=== PATIENT | male | born 1970 | race Caucasian/White ===

== ENCOUNTER → 2020-01-19 08:55 | Outpatient (BNVA) | payer MEDICAID, SELFPAY | PROVIDERS: Family Provider Family Medicine; PCP Family Medicine; Visit Provider Family Medicine | DX: I10 Essential (primary) hypertension (principal); E11.40 Type 2 diabetes mellitus with diabetic neuropathy, unspecified; E78.2 Mixed hyperlipidemia; M54.12 Radiculopathy, cervical region; G47.33 Obstructive sleep apnea (adult) (pediatric); E11.628 Type 2 diabetes mellitus with other skin complications; Z79.4 Long term (current) use of insulin; R79.89 Other specified abnormal findings of blood chemistry | CPT/HCPCS: 80053; 80061; 83036; 83721 ==

== ENCOUNTER 2020-02-01 06:00 | Outpatient (RCR) | payer MEDICAID, SELFPAY | END 2020-02-09 23:59 | disposition home or self-care (01) | LOC: MPT 06:00 | PROVIDERS: Family Provider Family Medicine; PCP Family Medicine; Referring Provider Family Medicine; Visit Provider Family Medicine | DX: G89.29 Other chronic pain (principal); M54.12 Radiculopathy, cervical region | CPT/HCPCS: 97110; 97140; 97161 ==

== ENCOUNTER 2020-02-08 10:21 | Outpatient (CLI) | payer MEDICAID, SELFPAY ==
--- NOTE | 2020-02-08 11:00 | MR_ITS ---
WS: [id number] MRI CERVICAL SPINE HISTORY: Left arm pain, weakness, muscle atrophy COMPARISON: None. Study was terminated early due to patient discomfort. Normal cervical alignment with no compression fracture or significant disc space narrowing. Mild hype rtrophic bone formation. No acute fractures are evident. Signal within the cervical cord is normal. Visualized posterior fossa is unremarkable. Craniocervical junction, C1 and C2 relationship, odontoid process and soft tissues are normal. C2-C3: Normal. C3-C4: Central broad based disc protrusion and osteophytosis. Effacement of ventral CSF. Moderate new tral and bilateral foraminal stenosis. C4-C5: Mild annular disc bulging and osteophytosis. Thecal sac is being significantly narrowed. There is mild central and LEFT foraminal stenosis. C5-C6: Diffuse annular disc bulging and osteophytic ridging. At least mild central stenosis with near complete effacement of CSF. C6-C7: Mild central stenosis. Indeterminate but suspicious for a shallow RIGHT paracentral disc prot rusion. C7-T1: Poorly visualized. Mild central stenosis. RIGHT paracentral disc protrusion with contact on th e RIGHT lateral thecal sac and cord. Paraspinal soft tissue are normal. MR/MR cervical spin wo con* [id number] IMPRESSION: 1. Examination is limited by patient's body habitus and early termination. Pat ient was unable to tolerate examination. 2. Congenitally narrow thecal sac beginning at the C2-3 through C7-T1. 3. Moderate central and bilateral foraminal stenosis at C3-4. 4. Mild central LEFT foraminal stenosis at C4-5. 5. Mild central stenosis at C5-6 and C6-7 and C7-T1. 6. Small RIGHT paracentral disc protrusion at C7-T1 contacting the RIGHT later al thecal sac and cord.
== END 2020-02-08 10:22 | disposition home or self-care (01) ==
LOC: RADSHAW 10:24
PROVIDERS: Family Provider Family Medicine; PCP Family Medicine; Visit Provider Family Medicine
DX: M79.602 Pain in left arm (principal); R53.1 Weakness; M62.50 Muscle wasting and atrophy, not elsewhere classified, unspecified site; M48.02 Spinal stenosis, cervical region; M51.24 Other intervertebral disc displacement, thoracic region
CPT/HCPCS: 72141

== ENCOUNTER → 2020-02-09 09:48 | Outpatient (BNVA) | payer MEDICAID, SELFPAY | PROVIDERS: Family Provider Family Medicine; PCP Family Medicine; Visit Provider Nurse Practitioner Family | DX: N39.0 Urinary tract infection, site not specified (principal); R39.9 Unspecified symptoms and signs involving the genitourinary system | CPT/HCPCS: 80053; 81000 ==

== ENCOUNTER 2020-02-10 06:00 | Outpatient (RCR) | payer MEDICAID, SELFPAY | END 2020-03-10 23:59 | disposition home or self-care (01) | LOC: MPT 06:00 | PROVIDERS: Family Provider Family Medicine; PCP Family Medicine; Referring Provider Family Medicine; Visit Provider Family Medicine | DX: G89.29 Other chronic pain (principal); M54.12 Radiculopathy, cervical region | CPT/HCPCS: 97110; 97140 ==

== ENCOUNTER 2020-02-25 10:02 | Outpatient (CLI) | payer MEDICAID, SELFPAY ==
--- NOTE | 2020-02-25 10:13 | XR_ITS ---
WS: [id number] CERVICAL SPINE FLEXION EXTENSION TECHNIQUE: 3 views of the cervical spine: lateral neutral, flexion and extension views. CLINICAL INFORMATION: Neck pain COMPARISON: None. FINDINGS: Normal alignment on the neutral view. No instability on flexion-extension. C6 and C7 not well visualized on lateral view. Posterior elements are normal. No other significant findings. XR/XR cervical spine fl/ex [id number] IMPRESSION: No instability on flexion-extension
== END 2020-02-25 10:03 | disposition home or self-care (01) ==
LOC: RADWPI 10:05
PROVIDERS: Family Provider Family Medicine; PCP Family Medicine; Visit Provider Licensed Practical Nurse
DX: M54.2 Cervicalgia (principal)
CPT/HCPCS: 72040

== ENCOUNTER 2020-03-02 12:21 | Outpatient (CLI) | payer MEDICAID, SELFPAY ==
--- NOTE | 2020-03-02 12:27 | XR_ITS ---
WS: [id number] CHEST 2 VIEWS HISTORY: right flank and ruq pain, 3 weeks COMPARISON: 05/31/2019 Lungs: Clear with no abnormality. No pleural effusion or pneumothorax. Cardiac size: Normal. Mediastinum/Aorta: Normal mediastinum. Bones: Normal. XR/XR chest 2V* [id number] IMPRESSION: Normal chest.
--- NOTE | 2020-03-02 12:27 | XR_ITS ---
WS: [id number] ABDOMEN 2 VIEW(S) HISTORY: abdominal pain, right flank and ruq pain COMPARISON: None available. Moderate fecal retention throughout the colon. No obstruction. No air-fluid levels or free air. Prior cholecystectomy. No suspicious calcifications or masses. Bridging osteophytes along the RIGHT lateral thoracic and lumbar spine. Bilateral hip joint osteoarth ritis. XR/XR abdomen min 2V [id number] IMPRESSION: Moderate constipation. No obstruction or free air. Prior cholecystectomy.
== END 2020-03-02 12:22 | disposition home or self-care (01) ==
PROVIDERS: Family Provider Family Medicine; PCP Family Medicine; Visit Provider Emergency Medicine
DX: R10.11 Right upper quadrant pain (principal); R10.9 Unspecified abdominal pain; Z90.49 Acquired absence of other specified parts of digestive tract; K59.00 Constipation, unspecified
CPT/HCPCS: 71046; 74019; 80053; 81000; 83690; 85025

== ENCOUNTER 2020-03-11 06:00 | Outpatient (RCR) | payer MEDICAID, SELFPAY | END 2020-04-10 23:59 | disposition home or self-care (01) | LOC: MPT 06:00 | PROVIDERS: Family Provider Family Medicine; PCP Family Medicine; Referring Provider Family Medicine; Visit Provider Family Medicine | DX: G89.29 Other chronic pain (principal); M54.12 Radiculopathy, cervical region | CPT/HCPCS: 97110; 97140 ==

== ENCOUNTER 2020-03-22 17:41 | Emergency (ER) | payer MEDICAID, SELFPAY ==
--- NOTE | 2020-03-22 18:02 | XR_ITS ---
WS: [id number] ABDOMEN 1 VIEW(S) HISTORY: constipation COMPARISON: None available. Normal bowel gas pattern. No suspicious calcifications or masses. Stable calcific density in the RIGHT pelvis. No bone abnormality. Prior cholecystectomy. XR/XR KUB [id number] IMPRESSION: Normal abdomen.
[2020-03-22 18:04] VITALS: BP 144/78; PULSE 78; RESP 16; O2SAT 97; BMI 40.6
--- NOTE | 2020-03-22 19:32 | ED_ITS ---
HPI - Abdominal Pain General: Chief Complaint: Abdominal Pain Stated Complaint: CONSTIPATION Time Seen by Provider: 03/22/20 19:18 Source: patient Mode of arrival: ambulatory Limitations: no limitations History of Present Illness: HPI narrative: 49-year-old male states he has been constipated over the last week and has had no bowel movements. He states that he has been on lactulose along with GoLYTELY with no help. He states he had increased pain was concerned that he could have a blockage. He denies any fever. He has had one episode of vomiting today. MD elicited complaint: abdominal pain Pertinent past history: constipation Onset (ago): week(s) Pain Consistency: constant Location: Diffuse Severity: moderate Quality: cramping Radiation: none Migration to: no migration Exacerbating factors: nothing Relieving factors: nothing Associated Symptoms: Reports constipation; Denies chills, dysuria and fever(s) Review of Systems Const: Denies: fever, chills, body aches or change in appetite Eyes: Denies: blurry vision or eye discomfort ENMT: Denies: throat pain or dental pain Card: Denies: chest pain Resp: Denies: shortness of breath GI: Reports: abdominal pain and constipation : Denies: painful urination Musc: Denies: neck pain or back pain Skin/Breast: Denies: rash Neuro: Denies: headache Psych: Denies: depression Miguelito/Lymph: Denies: easy bruising All/Imm: Denies: hives PFSH ED PFSH: Medical History 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 Constipation Diabetic neuropathy, painful Erectile dysfunction Hypertension Low testosterone in male Mixed hyperlipidemia Obstructive sleep apnea syndrome Paroxysmal atrial fibrillation Stenosis of cervical spine with myelopathy Type 2 diabetes mellitus Surgical History H/O cataract extraction History of cholecystectomy S/P cholecystectomy Family History Mother Dementia Brother Dementia Other Heart disease Social History Smoking and tobacco status: never smoked Alcohol intake: never Desire information about substance/drug rehabilitation?: No Household members: children Marital status: Current occupational status: unemployed History of recent travel: No Current gender identity: Male Physical Exam Const: COMMON NORMALS: no apparent distress, oriented x3 and healthy appearing HENMT: COMMON NORMALS: normocephalic and head/scalp atraumatic HEAD & SCALP: normocephalic and atraumatic Eye: COMMON NORMALS: PERRL and EOMs intact bilaterally PUPIL: Yes PERRL Neck/C-Spine: COMMON NORMALS: full ROM and supple Chest: COMMONS NORMALS: inspection of chest normal and palpation of chest normal Resp: COMMON NORMALS: normal respiratory effort, no retractions, no use of accessory muscles and clear to auscultation bilaterally AUSCULTATION: clear to auscultation bilaterally Cardio: COMMON NORMALS: regular rate, regular rhythm and no murmurs RATE: regular rate RHYTHM: regular rhythm GI: COMMON NORMALS: normal to inspection, nondistended, normoactive bowel sounds, soft to palpation, non-tender and no masses PALPATION: Yes soft Extremity: COMMON NORMALS: normal to inspection and full ROM Neuro: COMMON NORMALS: oriented x3, moves all extremities and no focal motor deficits Psych: COMMON NORMALS: mental status grossly normal, thought process normal and cooperative THOUGHT PROCESS: normal thought process Skin: COMMON NORMALS: no rashes or lesions noted and no wounds GENERAL SKIN EXAM: no rashes or lesions noted Course Vital Signs: Vital signs: Vital Signs Temperature 97.8 F 03/22/20 19:51 Pulse Rate 76 03/22/20 20:56 Respiratory Rate 16 03/22/20 20:56 Blood Pressure 148/79 03/22/20 20:56 Pulse Oximetry 96 03/22/20 20:56 MDM - Abdominal Pain MDM Narrative: Medical decision making narrative: Patient presents here with diffuse abdominal pain that is been going on for a week to 2 weeks. He has no signs of impaction or obstruction. CT here is otherwise negative lab work is negative as well. Patient is stable for discharge this to follow-up with his primary care doctor in 3 to 5 days. Patient is to return if worsening. Lab Data: Labs: Lab Results 03/22/20 03/22/20 Range/Units 19:34 19:34 WBC 9.6 (4.0-10.0) 10^3/ uL RBC 5.78 H (4.1-5.3) 10^6/u L Hgb 15.7 (11.7-16.6) g/dL Hct 49.7 (42.0-52.0) % MCV 86.0 (80-94) fL MCH 27.2 L (28.0-34.0) pg MCHC 31.6 (30.0-36.0) g/dL RDW 14.2 (12.1-15.1) % Plt Count 218 (130-400) 10^3/c mm MPV 10.0 (7.4-10.4) fL Neut % (Auto) 61.4 % Lymph % (Auto) 28.5 % Shackelford % (Auto) 6.9 % Eos % (Auto) 2.1 % Baso % (Auto) 0.8 % Neut # (Auto) 5.9 (1.8-7.7) 10^3/u L Lymph # (Auto) 2.7 (0.8-4.8) 10^3/u L Shackelford # (Auto) 0.7 (0.2-0.9) 10^3/u L Eos # (Auto) 0.2 (0.0-0.8) 10^3/u L Baso # (Auto) 0.1 (0.0-0.1) 10^3/u L Nucleated RBC % (a uto) 0 % Nucleated RBCs # 0.0 /100WBC Sodium 136 (136-145) mmol/L Potassium 4.9 (3.5-5.1) mmol/L Chloride 95 L (98-107) mmol/L Carbon Dioxide 30 H (22-29) mmol/L Anion Gap 15.9 (5-19) BUN 15 (6-20) mg/dL Creatinine 0.8 (0.7-1.2) mg/dL GFR Calculation 102.3 (90-130) mL/min Glucose 349 H (65-115) mg/dL Calculated Osmolal ity 292 (285-295) mOsm/k g Calcium 9.0 (8.5-10.5) mg/dL Total Bilirubin 0.4 (0.15-1.2) mg/dL AST 17 (0-40) U/L ALT 17 (0-41) U/L Alkaline Phosphata se 97 (40-130) IU/L Total Protein 6.9 (6.6-8.7) g/dL Albumin 4.3 (3.5-5.2) g/dL Globulin 2.6 (1.3-4.6) g/dL Lipase 23 (13-60) U/L Imaging Data ^: CT Abd/Pel: Radiologist's impression: [facility] [address] [place] [address] CT Scan Report Signed Patient: Allen Prince Unit #: [id number] : 1970 Age/Sex: 49 / M ADM Date: 03/22/20 Loc: ER Room/Bed: Attending Dr: Ordering Provider/Ordering MD: Gurinder Santo MD Date of Service: 03/22/20 Procedure(s): CT abdomen pelvis w con* [id number] Accession Number(s): [id number] Report Number: [id number] PROCEDURE INFORMATION: Exam: CT Abdomen And Pelvis With Contrast Exam date and time: 03/22/2020 7:39 PM Age: 49 years old Clinical indication: Constipation; Prior surgery; Surgery type: Gb; Additional info: Abd pain TECHNIQUE: Imaging protocol: Computed tomography of the abdomen and pelvis with intravenous contrast. Radiation optimization: All CT scans at this facility use at least one of these dose optimization techniques: automated exposure control; mA and/or kV adjustment per patient size (includes targeted exams where dose is matched to clinical indication); or iterative reconstruction. Contrast material: OMNI 300; Contrast volume: 95 ml; Contrast route: IV; COMPARISON: CR XR KUB [id number] 03/22/2020 6:33 PM RADIATION DOSE METRICS: Total DLP: 2254.45 mGy-cm FINDINGS: Lungs: There are calcified granulomas at the right lung base. Liver: There is no focal abnormality within the liver. Gallbladder and bile ducts: There has been a cholecystectomy. Pancreas: The pancreas is normal. Spleen: The spleen is normal. Adrenals: The adrenal glands are normal. Kidneys and ureters: The kidneys are normal. There is no evidence of renal or ureteral calcifications. There is no evidence of hydronephrosis. Stomach and bowel: There is no evidence of colitis/diverticulitis. Appendix: A normal appendix is identified. Intraperitoneal space: Unremarkable. No free air. No significant fluid collection. Vasculature: Unremarkable. No abdominal aortic aneurysm. Lymph nodes: Unremarkable. No enlarged lymph nodes. Bladder: Urinary bladder is moderately distended with a volume of approximately 800 cc. Reproductive: Unremarkable as visualized. Bones/joints: The lumbar spine demonstrates mild degenerative changes at multiple levels. Soft tissues: Unremarkable. CT/CT abdomen pelvis w con* [id number] IMPRESSION: 1. Distended urinary bladder. 2. No acute finding Discharge Plan Discharge Patient Disposition: Home, Self-Care Clinical Impression: Abdominal pain Qualifiers: Abdominal location: generalized Qualified Code(s): R10.84 - Generalized abdominal pain Condition: Stable Prescriptions: No Action aspirin 81 mg tablet,delayed release (DR/EC) 81 mg PO QDAY RF: 0 omega-3 fatty acids [Fish Oil Concentrate] 1,000 mg capsule 1,000 mg PO BID RF: 0 nitroglycerin 0.4 mg tablet, sublingual 0.4 mg SUBLINGUAL Q5M PRNRF: 0 baclofen 20 mg tablet 20 mg PO QID RF: 0 spironolactone 50 mg tablet 50 mg PO DAILY 30 Days Qty: 30 RF: 1 omeprazole 20 mg capsule,delayed release(DR/EC) 20 mg PO BID 30 Days Qty: 60 RF: 0 docusate sodium 100 mg capsule 100 mg PO BID 30 Days Qty: 60 RF: 2 Invokana 300 mg tablet 300 mg PO QDAY 30 Days Qty: 30 RF: 3 Lantus Solostar U-100 Insulin 100 unit/mL (3 mL) insulin pen 80 unit SUBCUT BID 30 Days Qty: 48 RF: 3 atorvastatin 40 mg tablet 40 mg PO QDAY 30 Days Qty: 30 RF: 11 metoprolol succinate 25 mg tablet extended release 24 hr 25 mg PO QDAY 30 Days Qty: 30 RF: 3 miscellaneous medical supply Misc See Rx Instructions miscellaneous .COMPLEX Qty: 1 RF: 0 peg 3350-electrolytes [Golytely] 236-22.74-6.74 -5.86 gram recon soln 240 ml PO Q10M Qty: 4000 RF: 0 ezetimibe [Zetia] 10 mg tablet 10 mg PO QDAY 30 Days Qty: 30 RF: 5 lisinopril 10 mg tablet 10 mg PO QDAY 30 Days Qty: 30 RF: 3 gabapentin 300 mg capsule 300 - 600 mg PO TID 30 Days Qty: 120 RF: 3 apixaban [Eliquis] 5 mg tablet See Rx Instructions .ROUTE .COMPLEX Qty: 60 RF: 2 flecainide 50 mg tablet 50 mg PO Q8H Qty: 60 RF: 4 lactulose 10 gram/15 mL (15 mL) solution 10 gm PO QID PRN (Reason: constipation) 7 Days Qty: 600 RF: 0 sitagliptin-metformin [Janumet] 50-1,000 mg tablet See Rx Instructions .ROUTE .COMPLEX Qty: 60 RF: 2 Discharge Orders: Discharge Order (Routine); Ordered 03/22/20 Ordered By: Gurinder Santo Referrals: Alana Davila MD [Primary Care Provider] - 1-3 days Discharge Diet: Advance as tolerated Discharge Activity: Resume usual activity Patient Instructions: Abdominal Pain (ED) Discharge Date/Time: 03/22/20 20:59 Coding Level of Care Code ED Finish Repairer for Srinig Fwd Exam Comprehensive
--- NOTE | 2020-03-22 19:42 | PC.NURSE ---
patient states he has been having shooting sharp pains in his right side of his abdomen that started three weeks ago. Patient states he had xrays done at [facility] 3 weeks ago and that they showed he was impacted. patient states he has been taking go lightly but it has been making him sick to his stomach and vomiting. patient states he has had an headache since starting the treatment.
[2020-03-22 19:44] LABS: Basophils # 0.1 10^3/uL (0.0-0.1); Basophils % 0.8 %; Eosinophils # 0.2 10^3/uL (0.0-0.8); Eosinophils % 2.1 %; Hematocrit 49.7 % (42.0-52.0); Hemoglobin 15.7 g/dL (11.7-16.6); Lymphocytes # 2.7 10^3/uL (0.8-4.8); Lymphocytes % 28.5 %; Mean Corpuscular HGB Conc 31.6 g/dL (30.0-36.0); Mean Corpuscular Hemoglobin 27.2 pg (28.0-34.0); Monocytes # 0.7 10^3/uL (0.2-0.9); Monocytes % 6.9 %; Neutrophils # 5.9 10^3/uL (1.8-7.7); Neutrophils % 61.4 %; Nucleated Red Blood Cells % 0 %; Platelet Count 218 10^3/cmm (130-400); Red Blood Count 5.78 10^6/uL (4.1-5.3); Red Cell Distribution Width 14.2 % (12.1-15.1); White Blood Count 9.6 10^3/uL (4.0-10.0)
--- NOTE | 2020-03-22 19:48 | PC.NURSE ---
patient states that the last time he had a bowel movement was this morning and it looked like hard brown pellets.
[2020-03-22] MEDS: lactulose oral liq 20 gm/30 mL UDC 30 GM PO (19:49)
[2020-03-22 19:51] VITALS: BP 139/83; PULSE 73; RESP 16; TEMP 36.6; O2SAT 96
[2020-03-22 19:56] LABS: Alanine Aminotransferase 17 U/L (0-41); Albumin Level 4.3 g/dL (3.5-5.2); Alkaline Phosphatase 97 IU/L (40-130); Anion Gap 15.9 (5-19); Blood Urea Nitrogen 15 mg/dL (6-20); Carbon Dioxide 30 mmol/L (22-29); Chloride 95 mmol/L (98-107); Globulin 2.6 g/dL (1.3-4.6); Glomerular Filtration Rate 102.3 mL/min (90-130); Glucose 349 mg/dL (65-115); Lipase 23 U/L (13-60); Osmolality Calculated 292 mOsm/kg (285-295); Potassium 4.9 mmol/L (3.5-5.1); Sodium 136 mmol/L (136-145); Total Bilirubin 0.4 mg/dL (0.15-1.2); Total Protein 6.9 g/dL (6.6-8.7)
[2020-03-22] MEDS: iohexol 300 mg/mL 100 mL Btl IV (20:20)
[2020-03-22 20:24] LABS: Aspartate Amino Transferase 17 U/L (0-40)
--- NOTE | 2020-03-22 20:25 | PC.NURSE ---
patient back from CT
[2020-03-22 20:30] VITALS: BP 120/67; O2SAT 96
[2020-03-22 20:56] VITALS: BP 148/79; PULSE 76; RESP 16; O2SAT 96
== END 2020-03-22 20:59 | disposition home or self-care (01) ==
PROVIDERS: Emergency Provider Emergency Medicine; PCP Family Medicine
DX: R10.84 Generalized abdominal pain (principal); Z79.82 Long term (current) use of aspirin; Z79.4 Long term (current) use of insulin; E11.40 Type 2 diabetes mellitus with diabetic neuropathy, unspecified; I10 Essential (primary) hypertension; E78.2 Mixed hyperlipidemia; I48.0 Paroxysmal atrial fibrillation
CPT/HCPCS: 12345; 74018; 74177; 80053; 83690; 85025; 99281; 99283; Q9967

== ENCOUNTER 2020-04-08 09:33 | Outpatient (CLI) | payer MEDICAID, SELFPAY ==
--- NOTE | 2020-04-08 10:00 | IR_ITS ---
WS: [id number] MYELOGRAM CERVICAL SPINE Fluoroscopic guided cervical myelogram CLINICAL INFORMATION: cervical pain COMPARISON: None. TECHNIQUE: The procedure, including risks, benefits, and complications, were discussed with the patie nt who agreed to proceed. A timeout was performed to confirm correct patient, procedure, and site. Using sterile technique, the patient was prepped and draped in the usual sterile fashion. After admin istration of local anesthesia using 1% preservative-free lidocaine and using fluoroscopic guidance, a 22-gauge spinal needle was advanced into the subarachnoid space at the L2-3 level. Subsequently 13 c c of Omnipaque 300 was administered into the thecal sac. The needle was removed and hemostasis was ac hieved. Subsequently the table was tilted down and contrast flowed freely into the cervical spine. Sp ot fluoroscopic images were obtained. FLUOROSCOPIC TIME: 2.1 minutes. Spot fluoroscopic images demonstrate mild cervical curve convex left. Moderate facet arthropathy thro ughout the thoracic spine. Normal C1-articulation. Straightening of the mid and upper cervical lordos is. No instability on flexion-extension. C6 and C7 and difficult to visualize on the flexion and exte nsion due to shoulder overlap. Please see CT myelogram report for additional detail. IR/IR myelogram sp cervical [id number] IMPRESSION: 1. Uncomplicated cervical myelogram. 2. Moderate spondylitic changes with facet arthropathy throughout the cervical spine. 3. Normal alignment on the neutral view with mild cervical curve and straighte martha of the normal cervical lordosis. 4. No instability on flexion-extension. C6 and C7 not well visualized on the f lexion and extension views due to shoulder overlap.
[2020-04-08] MEDS: iohexol 300 mg/mL 50 mL Btl INTRATHECA (11:11)
--- NOTE | 2020-04-08 11:30 | CT_ITS ---
WS: [id number] CT CERVICAL MYELOGRAM TECHNIQUE: CT of the cervical spine coronal and sagittal reformatted images post intrathecal administ ration of contrast. CLINICAL INFORMATION: cervical pain COMPARISON: MRI February 08, 2020 DLP: 2497.[address] scans at [facility] use at least one of these dose optimization techniques: automat ed exposure control; mA and/or kV adjustment per patient size (includes targeted exams where dose is matched to clinical indication); or iterative reconstruction. FINDINGS: Mild cervical curve convex right. Mild spondylitic changes cervical spine. Mild congenital spinal can al stenosis as seen on the cervical spine MRI contributes to central canal narrowing. C2-C3: Mild osteophytic ridging. Mild right and no significant left foraminal narrowing. Mild central canal stenosis. C3-C4: Mild disc osteophyte complex with endplate ridging. Tiny central disc osteophyte protrusion. M ild central canal stenosis with mild bilateral foraminal narrowing. Mild facet arthropathy. C4-C5: Mild disc osteophyte complex with endplate ridging. Moderate facet arthropathy. Moderate left and no significant right foraminal narrowing. C5-C6: Small central disc osteophyte complex with mild central canal stenosis. Moderate facet arthrop athy. Mild left and no significant right foraminal narrowing. C6-C7: Disc osteophyte complex with endplate ridging. Small central disc osteophyte protrusion. Mild central canal stenosis. Moderate left and no significant right foraminal narrowing. C7-T1: No significant disc bulging. Mild osteophytic ridging. Spinal canal and foramen are patent. Visualized posterior fossa structures: Normal. CT/CT cervical spine w con [id number] IMPRESSION: 1. Mild congenital central canal stenosis due to short pedicles contributes to mild central canal narrowing. No high-grade central canal stenosis. 2. Small central disc osteophyte protrusions C3-C4 C5-C6 and C6-C7 with mild c entral canal stenosis. 3. Mild to moderate bony foraminal narrowing worse at left C4-C5 and left C6-C 7 due to osteophytic ridging and facet arthropathy. 4. Mild cervical curve convex right. 5. Mild to moderate facet arthropathy worse at C5-C6
== END 2020-04-08 09:34 | disposition home or self-care (01) ==
LOC: RADWPI 09:34
PROVIDERS: PCP Family Medicine; Visit Provider Specialist
DX: M54.2 Cervicalgia (principal); M48.02 Spinal stenosis, cervical region; M25.78 Osteophyte, vertebrae; M47.812 Spondylosis without myelopathy or radiculopathy, cervical region
CPT/HCPCS: 62302; 72040; 72126; J2001

== ENCOUNTER 2020-04-21 09:13 | Day surgery (SDC) | payer MEDICAID, SELFPAY ==
[2020-04-19 14:00] VITALS: BMI 40.4
[2020-04-21 09:27] VITALS: BP 132/66; PULSE 66; RESP 18; TEMP 36.6; O2SAT 99
[2020-04-21] MEDS: sodium chloride 0.9% 1,000 ML 30 ML IV (09:39)
[2020-04-21 09:43] LABS: Glucose Point of Care 110 mg/dL (70-110)
--- NOTE | 2020-04-21 09:55 | ANES.PREANE2 ---
Pre-Anesthetic Assessment Pre-Anesthetic Assessment: Height/Weight: Height 1.98 m Weight 158.757 kg Temp Pulse Resp BP Pulse Ox 97.9 F 66 18 132/66 99 04/21/20 09:27 04/21/20 09:27 04/21/20 09:27 04/21/20 09:27 04/21/20 09:27 Preop Diagnosis: abdominal pain Proposed Procedure: Operation Date: 04/21/20 10:30 Proposed Procedures p EGD(Not Applicable) - Jim Capps MD s Colonoscopy(Not Applicable) - Jim Capps MD Familial anesthetic complications: none Last look eliquis saturday, metoprolol last night Last intake: Intake Last Liquid Date 04/20/20 Last Liquid Time 23:00 Last Solid Date 04/19/20 Last Solid Time 23:59 Social: Social History: No alcohol and No tobacco Exam: Pre-Anes Outpt Exam: alert, oriented x 3, clear to auscultation bilaterally and regular rate & rhythm Airway: Cervical ROM: WNL MP: 2 Dentition: Chipped and Loose Additional comments: extremley poor dentition Pulmonary: Pulmonary: None reported CV/HEM: CV/HEM: Afib and HTN : : None reported Hepatic: Hepatic: None reported GI: GI: None reported Metabolic: Metabolic: DM and Morbid obesity Musc/skel: Musc/skel: None reported Neuropsych: Neuropsych: None reported Anesthetic Plan: ASA status: 3 Anesthesia: MAC Risk of > 500 ml blood loss (7ml/kg in children): No Meds/Allergies Current Medications: Current Medications Generic Name Dose Route Start Last Admin Trade Name Freq PRN Reason Stop Dose Admin Sodium Chloride 1,000 mls @ 30 ml s/hr 04/21/20 09:30 04/21/20 09:39 Sodium Chloride 0.9% IV 04/22/20 09:29 30 mls/hr .Q24H ALLYN Administration PFSH Anesthesia PFSH: Medical History 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 Constipation Diabetic neuropathy, painful Erectile dysfunction Hypertension Low testosterone in male Mixed hyperlipidemia Obstructive sleep apnea syndrome Paroxysmal atrial fibrillation Stenosis of cervical spine with myelopathy Type 2 diabetes mellitus Surgical History H/O cataract extraction S/P cholecystectomy Family History Mother Dementia Brother Dementia Other Heart disease Denies family history of Anesthesia complication Bleeding disorder Social History (Updated 04/12/20 @ 07:57 by Sonya Magana LPN) Smoking and tobacco status: never smoked Alcohol intake: never Household members: children Marital status: Current occupational status: employed Current occupation: [employer] History of recent travel: No Current gender identity: Male Data Anesthesia Other Labs: Laboratory Results - last 48 hr 04/21/20 09:40 POC Glucose 110 Cardiac Studies: No Data to Display
--- NOTE | 2020-04-21 10:58 | W.PM.OPSUD ---
Surgery/Procedure H&P Update DATE OF PROCEDURE: April 21, 2020 DATE H&P PERFORMED: 04/01/20 H&P UPDATE INFORMATION: I have reviewed H&P completed within last 30 days, I have examined patient prior to procedure and No changes to prior documentation PREOP DIAGNOSIS: abdominal pain PLANNED PROCEDURE: Operation Date: 04/21/20 10:30 Proposed Procedures p EGD(Not Applicable) - Jim Capps MD s Colonoscopy(Not Applicable) - Jim Capps MD
[2020-04-21 11:17] VITALS: BP 98/54; PULSE 70; RESP 16; TEMP 37.1; O2SAT 99
--- NOTE | 2020-04-21 11:17 | ANE.PACU2 ---
Inpatient post-anesthesia follow up: Airway intact: Yes Vital signs: Temperature 97.9 F Pulse Rate 66 Respiratory Rate 18 Blood Pressure 132/66 Pulse Oximetry 99 Oxygen Delivery Me thod Room Air Oxygen Flow Rate Fraction of Inspir ed Oxygen Hydration adequate: Yes Nausea and vomiting: No Pain level: 1 Mental status: Baseline
[2020-04-21 11:34] VITALS: BP 109/59; PULSE 72; RESP 18; TEMP 37.1; O2SAT 100
== END 2020-04-21 11:55 | disposition home or self-care (01) ==
PROVIDERS: PCP Family Medicine; Visit Provider Surgery
PROC: 0DJ08ZZ Inspection of Upper Intestinal Tract, Via Natural or Artificial Opening Endoscopic (ICD-10-PCS; CPT 43235; principal; 2020-04-21 10:30)
PROC: 0DJD8ZZ Inspection of Lower Intestinal Tract, Via Natural or Artificial Opening Endoscopic (ICD-10-PCS; CPT 45378; 2020-04-21 10:30)
DX: R10.9 Unspecified abdominal pain (principal); R10.13 Epigastric pain; K29.70 Gastritis, unspecified, without bleeding; K29.80 Duodenitis without bleeding; I48.91 Unspecified atrial fibrillation; I10 Essential (primary) hypertension; E11.9 Type 2 diabetes mellitus without complications; E66.01 Morbid (severe) obesity due to excess calories; Z68.41 Body mass index [BMI] 40.0-44.9, adult; E78.2 Mixed hyperlipidemia; G47.33 Obstructive sleep apnea (adult) (pediatric); I48.0 Paroxysmal atrial fibrillation
CPT/HCPCS: 12345; 36416; 43239; 45378; 82962; 88305; J2704; J3010; J7030

== ENCOUNTER 2020-04-22 10:00 | Outpatient (CLI) | payer MEDICAID, SELFPAY ==
--- NOTE | 2020-04-22 10:10 | FL_ITS ---
WS: [id number] BARIUM ENEMA SINGLE CONTRAST. HISTORY: CONSTIPATION COMPARISON: None available. FLUOROSCOPY TIME: 2.3 minutes. Single contrast evaluation of the colon is performed. There is still a moderate amount of fecal reten tion throughout the colon. Tortuous colon with overlapping loops in the sigmoid. No strictures or soft tissue masses. There is g ood distention of the hepatic and splenic flexures. There is partial obscuration by fecal material of the RIGHT colon. The appendix does fill with contrast. There is also small amount of reflux into the distal small bowel. There is a persistent mild stricture in the ascending colon during the examinati on. This was not as apparent on the postevacuation and follow-up radiographs. FL/FL barium enema w air* [id number] IMPRESSION: 1. Tortuous overlapping loops of colon. 2. Study is limited by fecal retention in the RIGHT colon. 3. Focal mild stricture in the ascending colon persisted throughout the fluoro scopic examination but was not evident on the delayed imaging. May have been an area of spasm but early neoplastic stricture is not excluded. Recommend follow -up colonoscopy.
== END 2020-04-22 10:01 | disposition home or self-care (01) ==
PROVIDERS: PCP Family Medicine; Visit Provider Surgery
DX: K59.00 Constipation, unspecified (principal)
CPT/HCPCS: 74280

== ENCOUNTER → 2020-04-25 09:16 | Outpatient (BNVA) | payer MEDICAID, SELFPAY | PROVIDERS: PCP Family Medicine; Visit Provider Family Medicine | DX: I10 Essential (primary) hypertension (principal); K59.00 Constipation, unspecified; K56.7 Ileus, unspecified; E11.628 Type 2 diabetes mellitus with other skin complications; Z79.4 Long term (current) use of insulin | CPT/HCPCS: 80053; 83036 ==

== ENCOUNTER → 2020-04-26 10:50 | Outpatient (BNVA) | payer MEDICAID, SELFPAY | PROVIDERS: PCP Family Medicine; Referring Provider Specialist; Visit Provider Anesthesiology Pain Medicine | DX: M25.512 Pain in left shoulder (principal); M54.2 Cervicalgia | CPT/HCPCS: 99204; 99205 ==

== ENCOUNTER 2020-05-11 | Outpatient (CLI) | payer MEDICAID, SELFPAY | END 2020-05-11 23:00 | disposition home or self-care (01) | LOC: SLEEP 07-11 12:36 | PROVIDERS: PCP Family Medicine; Visit Provider Family Medicine | DX: M50.020 Cervical disc disorder with myelopathy, mid-cervical region, unspecified level (principal); G47.33 Obstructive sleep apnea (adult) (pediatric) | CPT/HCPCS: 62321; J1100 ==

== ENCOUNTER → 2020-05-11 13:01 | Outpatient (BNVA) | payer MEDICAID, SELFPAY | PROVIDERS: PCP Family Medicine; Visit Provider Anesthesiology Pain Medicine | DX: M50.020 Cervical disc disorder with myelopathy, mid-cervical region, unspecified level (principal) | CPT/HCPCS: 62321 ==

== ENCOUNTER 2020-05-25 20:00 | Outpatient (CLI) | payer MEDICAID, SELFPAY | END 2020-05-25 20:01 | disposition home or self-care (01) | LOC: SLEEP 05-26 09:50 | PROVIDERS: PCP Family Medicine; Visit Provider Family Medicine | DX: G47.33 Obstructive sleep apnea (adult) (pediatric) (principal) | CPT/HCPCS: 95811 ==

== ENCOUNTER → 2020-05-30 13:54 | Outpatient (BNVA) | payer MEDICAID, SELFPAY | PROVIDERS: PCP Family Medicine; Visit Provider Anesthesiology Pain Medicine | DX: M50.020 Cervical disc disorder with myelopathy, mid-cervical region, unspecified level (principal) | CPT/HCPCS: 62321; J1100 ==

== ENCOUNTER → 2020-06-10 10:39 | Outpatient (BNVA) | payer MEDICAID, SELFPAY | PROVIDERS: PCP Family Medicine; Visit Provider Anesthesiology Pain Medicine | DX: M79.18 Myalgia, other site (principal); M54.2 Cervicalgia | CPT/HCPCS: 20553; 99213 ==

== ENCOUNTER → 2020-07-25 09:42 | Outpatient (BNVA) | payer MEDICAID, SELFPAY | PROVIDERS: PCP Family Medicine; Visit Provider Family Medicine | DX: E11.628 Type 2 diabetes mellitus with other skin complications (principal); Z79.4 Long term (current) use of insulin; M50.020 Cervical disc disorder with myelopathy, mid-cervical region, unspecified level | CPT/HCPCS: 80053; 83036 ==

== ENCOUNTER → 2020-07-26 08:36 | Outpatient (BNVA) | payer MEDICAID, SELFPAY | PROVIDERS: PCP Family Medicine; Visit Provider Anesthesiology Pain Medicine | DX: M50.020 Cervical disc disorder with myelopathy, mid-cervical region, unspecified level (principal); M54.12 Radiculopathy, cervical region; M47.812 Spondylosis without myelopathy or radiculopathy, cervical region; M25.512 Pain in left shoulder; Q76.49 Other congenital malformations of spine, not associated with scoliosis; F17.220 Nicotine dependence, chewing tobacco, uncomplicated | CPT/HCPCS: 99213; 99214 ==

== ENCOUNTER → 2020-08-04 09:10 | Outpatient (BNVA) | payer MEDICAID, SELFPAY | PROVIDERS: PCP Family Medicine; Visit Provider Internal Medicine Cardiovascular Disease | DX: I50.31 Acute diastolic (congestive) heart failure (principal) | CPT/HCPCS: 80048; 83735; 83880 ==

== ENCOUNTER → 2020-08-31 09:15 | Outpatient (BNVA) | payer MEDICAID, SELFPAY | PROVIDERS: PCP Family Medicine; Visit Provider Anesthesiology Pain Medicine | DX: M54.12 Radiculopathy, cervical region (principal); M47.812 Spondylosis without myelopathy or radiculopathy, cervical region; Q76.49 Other congenital malformations of spine, not associated with scoliosis; F17.220 Nicotine dependence, chewing tobacco, uncomplicated | CPT/HCPCS: 99213; 99214 ==

== ENCOUNTER → 2020-09-16 08:23 | Outpatient (BNVA) | payer MEDICAID, SELFPAY | PROVIDERS: PCP Family Medicine; Visit Provider Anesthesiology Pain Medicine | DX: M47.812 Spondylosis without myelopathy or radiculopathy, cervical region (principal); M54.12 Radiculopathy, cervical region; M50.020 Cervical disc disorder with myelopathy, mid-cervical region, unspecified level; F17.220 Nicotine dependence, chewing tobacco, uncomplicated | CPT/HCPCS: 64490; 64491; J3490 ==

== ENCOUNTER → 2020-09-28 13:01 | Outpatient (BNVA) | payer MEDICAID, SELFPAY | PROVIDERS: PCP Family Medicine; Visit Provider Anesthesiology Pain Medicine | DX: M54.12 Radiculopathy, cervical region (principal); M47.812 Spondylosis without myelopathy or radiculopathy, cervical region; M25.512 Pain in left shoulder; Q76.49 Other congenital malformations of spine, not associated with scoliosis; F17.220 Nicotine dependence, chewing tobacco, uncomplicated | CPT/HCPCS: 99212 ==

== ENCOUNTER → 2020-10-13 14:03 | Outpatient (BNVA) | payer MEDICAID, SELFPAY | PROVIDERS: PCP Family Medicine; Visit Provider Internal Medicine Cardiovascular Disease | DX: Z20.828 Contact with and (suspected) exposure to other viral communicable diseases (principal) | CPT/HCPCS: 87635 ==

== ENCOUNTER 2020-10-19 10:42 | Day surgery (SDC) | payer MEDICAID, SELFPAY ==
[2020-10-19] VITALS (7 sets, daily range): BP systolic 79–120; BP diastolic 55–78; PULSE 77–90; RESP 13–23; TEMP 37; O2SAT 93–98; BMI 42.8
--- NOTE | 2020-10-19 11:00 | USCV_ITS ---
Allen Prince Age: 49 Gender: M : 1970 Exam Date: 10/19/2020 11:53 Ordering Phys: Priscila Anderson MD ([email or web address]) Technologist: Nichole Marr Exam Location: [facility] [place] Indication: AFIB BP: 120 / 78 HR: 90 Rhythm: Sinus Technical Quality: Good MEASUREMENTS (Male / Female) Normal Values Medications IV sedation by anesthesia. Please refer to anesthesia report for complete list of medications. Complications Intubation easy. Attempts x1. No fran or postprocedural complications. Proc. Components Multiple images were obtained at mid esophageal and transgastric level. FINDINGS Left Ventricle Normal left ventricular cavity size. Normal left ventricular systolic function. Left ventricular ejection fraction is estimated at 65 %. No regional wall motion abnormalities. Right Ventricle Normal right ventricular size and systolic function. Right Atrium Normal right atrial size. Left Atrium Upper normal left atrial size. LA Appendage Normal left atrial appendage. Normal flow velocities in the left atrial appendage. No thrombus visualized in the left atrial appendage. IA Septum Normal interatrial septum. No patent foramen ovale or atrial septal defect by color Doppler or agitated saline study. Mitral Valve Structurally normal mitral valve. No mitral valve stenosis. Trace mitral valve regurgitation. Aortic Valve Structurally normal trileaflet aortic valve. No aortic valve stenosis. No aortic valve regurgitation. Tricuspid Valve Structurally normal tricuspid valve. No tricuspid valve stenosis. Mild tricuspid valve regurgitation. Pulmonic Valve Structurally normal pulmonic valve. No pulmonary valve stenosis. Trace pulmonary valve regurgitation. Pericardium No pericardial effusion. Aorta Normal size aortic root and proximal ascending aorta. No evidence of aortic dilation aneurysm or dissection. CONCLUSIONS 1. Normal left ventricular cavity size and systolic function. Left ventricular ejection fraction is estimated at 65 %. No regional wall motion abnormalities. 2. No evidence of left atrial or left atrial appendage thrombus. 3. Mild tricuspid valve regurgitation. 4. No significant change when compared to previous study dated 04/14/2019. Priscila Anderson MD (Electronically Signed) Final Date: 21 October 2020 13:22 S
--- NOTE | 2020-10-19 11:15 | ANES.PREANE2 ---
Pre-Anesthetic Assessment Pre-Anesthetic Assessment: Height/Weight: Height 1.98 m Weight 168.283 kg Temp Pulse Resp BP Pulse Ox 98.6 F 90 18 120/78 98 10/19/20 10:54 10/19/20 10:54 10/19/20 10:54 10/19/20 10:54 10/19/20 10:54 Preop Diagnosis: abdominal pain Proposed Procedure: Operation Date: 10/19/20 12:00 Proposed Procedures p ISAURO 30312/45699, I48.0(Not Applicable) - Priscila Anderson MD s Cardioversion(Not Applicable) - Priscila Anderson MD Familial anesthetic complications: None Was Beta Addi taken within 24 hours: Yes Last intake: NPO > 8 hrs Social: Social History: No alcohol and No tobacco Comment: Patient has been chewing tobacco since age 5 Exam: Pre-Anes Outpt Exam: alert, oriented x 3, clear to auscultation bilaterally and regular rate & rhythm Airway: Cervical ROM: WNL MP: 4 Dentition: Chipped and Loose Additional comments: Large neck Very poor dentition, multiple black rotting teeth. 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 Constipation Diabetic neuropathy, painful Erectile dysfunction Hypertension Low testosterone in male Mixed hyperlipidemia Obstructive sleep apnea syndrome Paroxysmal atrial fibrillation Stenosis of cervical spine with myelopathy Type 2 diabetes mellitus Surgical History H/O cataract extraction H/O esophagogastroduodenoscopy (04/21/20) gastritis and duodenitis S/P cholecystectomy Family History Mother Dementia Brother Dementia Other Heart disease Denies family history of Anesthesia complication Bleeding disorder Social History Smoking and tobacco status: current every day smoker smokeless tobacco Smokeless tobacco user: chewing tobacco Smokeless tobacco details: 1.5 CANS PER DAY Second hand smoke exposure: No Alcohol intake: never Lives independently: Yes Household members: children Marital status: Current occupational status: employed Current occupation: [employer] History of recent travel: No Current gender identity: Male Data Anesthesia Cardiac Studies: No Data to Display
--- NOTE | 2020-10-19 11:50 | ECG_ITS ---
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 Measurements Intervals [place] Rate: 80 P: [place]: QRS: 33 QRSD: 105 T: 47 QT: 379 QTc: 439 Interpretive Statements ATRIAL FIBRILLATION ABNORMAL RHYTHM ECG Compared to ECG 08/03/2019 11:37:20 Sinus rhythm no longer present Electronically Signed On 10-19-2020 14:00:22 EYEGLASS FRAMES INSPECTOR by Priscila Anderson M.D. [id number]
--- NOTE | 2020-10-19 12:48 | W.PM.OPSUD ---
Surgery/Procedure H&P Update DATE OF PROCEDURE: October 19, 2020 DATE H&P PERFORMED: 04/01/20 PREOP DIAGNOSIS: Symptomatic atrial fibrillation PLANNED PROCEDURE: Operation Date: 10/19/20 12:00 Proposed Procedures p ISAURO [id number]/[id number], I48.0(Not Applicable) - Priscila Anderson MD s Cardioversion(Not Applicable) - Priscila Anderson MD Patient was seen and examined before the procedure. History and physical exam unchanged. ASA 3 and airway 4. Plan is to proceed with transesophageal echocardiogram and cardioversion if applicable for symptomatic atrial fibrillation.
--- NOTE | 2020-10-19 12:51 | P.PCN_ITS ---
Procedure/Consent Time out: Time Out Performed: Yes Consent: Consent for Procedure: Consent obtained from patient, Risks & Benefits reviewed and Agrees to proceed with procedure Procedure Narrative: ISAURO Procedure note Indication: Symptomatic atrial fibrillation Sedation: Propofol by anesthesia The patient was brought down to the chemistry laboratory technician (CPRU). Preprocedure EKG showed atrial fibrillation at 80 bpm with normal axis and nonspecific ST depression. Procedure was explained to the patient in detail and informed consent was obtained. Timeout was called. After achieving adequate sedation, the probe was inserted on first attempt. No blood on the probe post procedure. Prelim report: Normal left ventricle size and systolic function. No left atrial or left atrial appendage mass or thrombus visualized. No ASD or PFO identified. Full report to follow. Cardioversion procedure note. Indication: Symptomatic atrial fibrillation Anticoagulation: Eliquis Sedation: Propofol by anesthesia Pads were placed anteroposteriorly. After ensuring no left atrial or left atrium appendage thrombus, patient was placed in the supine position. He received 150 J of synchronized biphasic shock ?1 followed by 200 J of synchronized biphasic shock with mu-ism of normal sinus rhythm. Patient tolerated the procedure well. Recovery: In unit Disposition: Patient to be discharged later today on current medications. Follow-up EKG in 1 week at [facility]. Follow-up with me as scheduled next month. Acute Procedures Epistaxis Control: Time out performed: Yes
--- NOTE | 2020-10-19 12:53 | ECG_ITS ---
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 Measurements Intervals [place] Rate: 76 P: 18 HI: 204 QRS: 30 QRSD: 105 T: 62 QT: 388 QTc: 437 Interpretive Statements SINUS RHYTHM WITH FIRST DEGREE av BLOCK Compared to ECG 10/19/2020 12:01:40 Atrial fibrillation no longer present Electronically Signed On 10-19-2020 14:00:04 NONPROFIT FINANCIAL CONTROLLER by Priscila Anderson M.D. [id number]
--- NOTE | 2020-10-19 18:37 | ANE.PACU2 ---
Inpatient post-anesthesia follow up: Airway intact: Yes Vital signs: Temperature 98.6 F Pulse Rate 77 Respiratory Rate 15 Blood Pressure 94/69 Pulse Oximetry 97 Oxygen Delivery Me thod Room Air Oxygen Flow Rate 10 Fraction of Inspir ed Oxygen Hydration adequate: Yes Nausea and vomiting: No Pain level: 2 Mental status: Baseline Additional Comments: Patient denied any missing or broken teeth
== END 2020-10-19 13:47 | disposition home or self-care (01) ==
PROVIDERS: PCP Family Medicine; Visit Provider Internal Medicine Cardiovascular Disease
PROC: (CPT 93312; principal; 2020-10-19 12:00)
PROC: 5A2204Z Restoration of Cardiac Rhythm, Single (ICD-10-PCS; 2020-10-19 12:00)
DX: I48.0 Paroxysmal atrial fibrillation (principal); F17.220 Nicotine dependence, chewing tobacco, uncomplicated; G47.30 Sleep apnea, unspecified; K21.9 Gastro-esophageal reflux disease without esophagitis; E78.5 Hyperlipidemia, unspecified; E66.01 Morbid (severe) obesity due to excess calories; Z68.41 Body mass index [BMI] 40.0-44.9, adult; E11.40 Type 2 diabetes mellitus with diabetic neuropathy, unspecified; I10 Essential (primary) hypertension; G47.33 Obstructive sleep apnea (adult) (pediatric)
CPT/HCPCS: 12345; 36415; 92960; 93005; 93312; 93320; 93325; J2704; J3490; J7030

== ENCOUNTER → 2020-10-24 10:25 | Outpatient (BNVA) | payer MEDICAID, SELFPAY | PROVIDERS: PCP Family Medicine; Visit Provider Family Medicine | DX: E11.628 Type 2 diabetes mellitus with other skin complications (principal); E11.9 Type 2 diabetes mellitus without complications; Z79.4 Long term (current) use of insulin; K59.04 Chronic idiopathic constipation; I10 Essential (primary) hypertension; I48.0 Paroxysmal atrial fibrillation; M50.020 Cervical disc disorder with myelopathy, mid-cervical region, unspecified level; G47.33 Obstructive sleep apnea (adult) (pediatric); N39.43 Post-void dribbling; E87.5 Hyperkalemia | CPT/HCPCS: 80048; 83036 ==

== ENCOUNTER → 2020-11-28 08:36 | Outpatient (BNVA) | payer MEDICAID, SELFPAY | PROVIDERS: PCP Family Medicine; Referring Provider Family Medicine; Visit Provider Urology | DX: N39.43 Post-void dribbling (principal); R39.13 Splitting of urinary stream; Z12.5 Encounter for screening for malignant neoplasm of prostate; N52.9 Male erectile dysfunction, unspecified | CPT/HCPCS: 81003; G0103 ==

== ENCOUNTER 2021-01-10 13:21 | Emergency (ER) | payer MEDICAID, SELFPAY ==
[2021-01-10] VITALS (7 sets, daily range): BP systolic 100–142; BP diastolic 53–75; PULSE 18–92; RESP 18–86; TEMP 36.6; O2SAT 96–99; BMI 43.2
--- NOTE | 2021-01-10 13:47 | ECG_ITS ---
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1970 Requested By: Cameron Hubbard Order Number: [id number] Aj MD: CAMMIE SINGLETARY Measurements Intervals [place] Rate: 92 P: [place]: QRS: 13 QRSD: 104 T: 74 QT: 364 QTc: 452 Interpretive Statements ATRIAL FIBRILLATION WITH ABERRANT CONDUCTION OR VENTRICULAR PREMATURE COMPLEXES NONSPECIFIC T-WAVE ABNORMALITY ABNORMAL RHYTHM ECG Compared to ECG 10/19/2020 13:27:50 Ventricular premature complex(es) now present Aberrant conduction of supraventricular beat(s) now present T-wave abnormality now present Sinus rhythm no longer present First degree AV block no longer present Electronically Signed On 01-10-2021 19:52:53 GAS LEAK TESTER by CAMMIE SINGLETARY [email or web address].[facility].[employer]/store/NU/[id number] f
--- NOTE | 2021-01-10 13:47 | XRR_ITS ---
PROCEDURE INFORMATION: Exam: XR Chest Exam date and time: 01/10/2021 1:54 PM Age: 50 years old Clinical indication: Chest pain; Type not specified; Additional info: Cp TECHNIQUE: Imaging protocol: XR of the chest Views: 1 view. COMPARISON: CR XR chest 2V* [id number] 03/02/2020 12:58 PM FINDINGS: Lungs: Unremarkable. No consolidation. Pleural spaces: Unremarkable. No pleural effusion. No pneumothorax. Heart/Mediastinum: Unremarkable. No cardiomegaly. Bones/joints: Unremarkable. XR/XR chest 1V portable [id number] IMPRESSION: No acute findings.
--- NOTE | 2021-01-10 13:51 | W.ED.CHESTPA ---
HPI - Chest Pain General: Chief Complaint: Chest Pain Stated Complaint: CP SINCE YESTERDAY, TODAY L ARM PAIN Time Seen by Provider: 01/10/21 13:47 History of Present Illness: HPI narrative: Patient is a 50-year-old male comes to the ED with chest pain. Past medical history of CHF, A. fib, GERD, hyperlipidemia, diabetes type 2 and hypertension. Patient says he started developing chest pain yesterday. It started when patient was active and up and moving around. He says it gets worse upon exertion. Chest pain is located in the left side of chest and currently rates it a 5 out of 10. Today he said the chest pain started moving down the left arm. Patient has not taken any meds to help for pain. Associated symptoms: Deny abdominal pain, dyspnea, fever(s), nausea, palpitations or vomiting Review of Systems Const: Denies: fever(s), chills or fatigue Eyes: Denies: change in vision or eye discomfort ENMT: Denies: throat pain, odynophagia, nasal discharge or nasal congestion Card: Reports: chest pain; Denies: palpitations, edema, swelling of feet/ankles, dyspnea on exertion or orthopnea Resp: Denies: dyspnea, productive cough or non-productive cough GI: Denies: abdominal pain, nausea, vomiting, diarrhea, constipation or hematochezia : Denies: flank pain, difficulty urinating, dysuria or hematuria Musc: Denies: neck pain, back pain or extremity swelling Skin/Breast: Denies: rash or new lesions Neuro: Denies: headache(s), numbness in extremities or weakness in extremities PFSH ED PFSH: Medical History 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 Constipation Diabetic neuropathy, painful Erectile dysfunction Hypertension Low testosterone in male Mixed hyperlipidemia Obstructive sleep apnea syndrome Paroxysmal atrial fibrillation Post-void dribbling Stenosis of cervical spine with myelopathy Type 2 diabetes mellitus Surgical History H/O cataract extraction H/O esophagogastroduodenoscopy (04/21/20) gastritis and duodenitis S/P cholecystectomy Family History Mother Dementia Brother Dementia Other Heart disease Denies family history of Anesthesia complication Bleeding disorder Social History Smoking and tobacco status: current every day smoker smokeless tobacco Smokeless tobacco user: chewing tobacco Smokeless tobacco details: 1.5 CANS PER DAY Second hand smoke exposure: No Alcohol intake: never Lives independently: Yes Household members: children Marital status: Current occupational status: employed Current occupation: [employer] History of recent travel: No Current gender identity: Male Physical Exam Const: COMMON NORMALS: no acute distress, patient oriented x3 and alert GENERAL APPEARANCE: cooperative and comfortable NUTRITIONAL APPEARANCE: obese HENMT: COMMON NORMALS: normocephalic HEAD & SCALP: normocephalic MOUTH: Normal oral and palatal mucosa present THROAT: posterior oropharynx normal and uvula midline Eye: COMMON NORMALS: Equal, round and reactive pupils present PUPIL: Yes Equal, round and reactive pupils present Neck/C-Spine: COMMON NORMALS: supple GENERAL: Yes normal visual inspection Resp: COMMON NORMALS: normal respiratory effort, No retractions, No use of accessory muscles and clear to auscultation bilaterally AUSCULTATION: clear to auscultation bilaterally Cardio: COMMON NORMALS: regular rate, regular rhythm, S1 normal heart sound present, S2 normal heart sound present, No gallops present (Cardio), No clicks present (Cardio), No murmurs present (Cardio) and Peripheral pulses 2+ throughout RATE: regular rate RHYTHM: regular rhythm HEART SOUNDS: S1 normal heart sound present and S2 normal heart sound present PERIPHERAL PULSES: Peripheral pulses 2+ throughout GI: COMMON NORMALS: Normal to inspection, nondistended, normoactive bowel sounds present, Soft to palpation, non-tender and no masses PALPATION: Yes Soft to palpation : COMMON NORMALS: Yes no CVA tenderness BLADDER/KIDNEY EXAM: Yes no CVA tenderness Back/Pelvis: COMMON NORMALS: no CVA tenderness Extremity: COMMON NORMALS: normal to inspection Neuro: COMMON NORMALS: patient oriented x3 and moves all extremities SENSORIUM/ORIENTATION: Yes alert Skin: GENERAL SKIN EXAM: dry skin Course ED course: Heart Score of 3- low risk of MACE Reevaluation(s): Reevaluation #1: Patient's chest pain has now completely resolved after taking 1 dose of nitro sublingual. Time: 15:43 Vital Signs: Vital signs: Vital Signs Temperature 97.9 F 01/10/21 13:36 Pulse Rate 18 L 01/10/21 17:21 Respiratory Rate 86 H 01/10/21 17:21 Blood Pressure 100/60 01/10/21 17:21 Pulse Oximetry 96 01/10/21 17:21 MDM - Chest Pain MDM Narrative: Medical decision making narrative: Patient is a 50-year-old male comes to the ED with chest pain. Past medical history of hyperlipidemia, hypertension and diabetes. Upon arrival patient appears in no acute distress or pain. He rated his chest pain a 5 out of 10. EKG showed no acute findings or signs of OR. Troponins were negative. White blood cells 14.3 and rest of CBC and CMP were unremarkable. Chest x-ray showed no acute findings. Patient was given a dose of nitro here in the ED. Patient said his pain had completely resolved. Heart score 3. Patient was diagnosed with chest pain and discharged home. He has follow-up with his PCP within a week. Return to ED precautions given and I stressed with patient if he says any other reoccurring chest pain come to the ED immediately. Patient understood and agreed with plan. Lab Data: Attestation: I reviewed the patient's lab results. Labs: Lab Results 01/10/21 01/10/21 01/10/21 Range/Units 14:08 14:08 14:08 WBC 14.3 H (4.0-10.0) 10^3/ uL RBC 5.53 H (4.1-5.3) 10^6/u L Hgb 15.2 (11.7-16.6) g/dL Hct 48.1 (42.0-52.0) % MCV 87.0 (80-94) fL MCH 27.5 L (28.0-34.0) pg MCHC 31.6 (30.0-36.0) g/dL RDW 14.2 (12.1-15.1) % Plt Count 245 (130-400) 10^3/c mm MPV 10.0 (7.4-10.4) fL Neut % (Auto) 69.5 % Lymph % (Auto) 22.4 % Stanley % (Auto) 5.6 % Eos % (Auto) 1.5 % Baso % (Auto) 0.6 % Neut # (Auto) 9.92 H (1.8-7.7) 10^3/u L Lymph # (Auto) 3.2 (0.8-4.8) 10^3/u L Stanley # (Auto) 0.8 (0.2-0.9) 10^3/u L Eos # (Auto) 0.2 (0.0-0.8) 10^3/u L Baso # (Auto) 0.1 (0.0-0.1) 10^3/u L Nucleated RBC % (a uto) 0 % Nucleated RBCs # 0.0 /100WBC Sodium 137 (136-145) mmol/L Potassium 3.9 (3.5-5.1) mmol/L Chloride 99 (98-107) mmol/L Carbon Dioxide 29 (22-29) mmol/L Anion Gap 12.9 (5-19) BUN 14 (6-20) mg/dL Creatinine 1.0 (0.7-1.2) mg/dL GFR Calculation 78.8 L (90-130) mL/min Glucose 75 (65-115) mg/dL Calculated Osmolal ity 283 L (285-295) mOsm/k g Calcium 8.9 (8.5-10.5) mg/dL Total Bilirubin 0.5 (0.15-1.2) mg/dL AST 12 (0-40) U/L ALT 9 (0-41) U/L Alkaline Phosphata se 95 (40-130) IU/L Troponin T Baselin e 17 H (0-15) ng/L Troponin T 120 Min [place] (0-15) ng/L Delta Troponin T (0-10) ABS# NT-Pro-B Natriuret Pep 562 H (0-125) pg/mL Total Protein 7.1 (6.6-8.7) g/dL Albumin 4.2 (3.5-5.2) g/dL Globulin 2.9 (1.3-4.6) g/dL 01/10/21 Range/Units 16:08 WBC (4.0-10.0) 10^3/ uL RBC (4.1-5.3) 10^6/u L Hgb (11.7-16.6) g/dL Hct (42.0-52.0) % MCV (80-94) fL MCH (28.0-34.0) pg MCHC (30.0-36.0) g/dL RDW (12.1-15.1) % Plt Count (130-400) 10^3/c mm MPV (7.4-10.4) fL Neut % (Auto) % Lymph % (Auto) % Stanley % (Auto) % Eos % (Auto) % Baso % (Auto) % Neut # (Auto) (1.8-7.7) 10^3/u L Lymph # (Auto) (0.8-4.8) 10^3/u L Stanley # (Auto) (0.2-0.9) 10^3/u L Eos # (Auto) (0.0-0.8) 10^3/u L Baso # (Auto) (0.0-0.1) 10^3/u L Nucleated RBC % (a uto) % Nucleated RBCs # /100WBC Sodium (136-145) mmol/L Potassium (3.5-5.1) mmol/L Chloride (98-107) mmol/L Carbon Dioxide (22-29) mmol/L Anion Gap (5-19) BUN (6-20) mg/dL Creatinine (0.7-1.2) mg/dL GFR Calculation (90-130) mL/min Glucose (65-115) mg/dL Calculated Osmolal ity (285-295) mOsm/k g Calcium (8.5-10.5) mg/dL Total Bilirubin (0.15-1.2) mg/dL AST (0-40) U/L ALT (0-41) U/L Alkaline Phosphata se (40-130) IU/L Troponin T Baselin e (0-15) ng/L Troponin T 120 Min [place] 12.80 (0-15) ng/L Delta Troponin T -4.20 L (0-10) ABS# NT-Pro-B Natriuret Pep (0-125) pg/mL Total Protein (6.6-8.7) g/dL Albumin (3.5-5.2) g/dL Globulin (1.3-4.6) g/dL Imaging Data^: CXR: Attestation: I personally reviewed and interpreted this imaging study as follows: Radiologist's impression: [address] [place] [address] XRay Report Signed Patient: Allen Prince Unit #: [id number] : 1970 Age/Sex: 50 / M ADM Date: 01/10/21 Loc: ER Room/Bed: Attending Dr: Ordering Provider/Ordering MD: Cameron Hubbard Date of Service: 01/10/21 Procedure(s): XR chest 1V portable [id number] Accession Number(s): [id number] Report Number: [id number] PROCEDURE INFORMATION: Exam: XR Chest Exam date and time: 01/10/2021 1:54 PM Age: 50 years old Clinical indication: Chest pain; Type not specified; Additional info: Cp TECHNIQUE: Imaging protocol: XR of the chest Views: 1 view. COMPARISON: CR XR chest 2V* [id number] 03/02/2020 12:58 PM FINDINGS: Lungs: Unremarkable. No consolidation. Pleural spaces: Unremarkable. No pleural effusion. No pneumothorax. Heart/Mediastinum: Unremarkable. No cardiomegaly. Bones/joints: Unremarkable. XR/XR chest 1V portable [id number] IMPRESSION: No acute findings. Dictated By: Waqas Richards Signed By: Waqas Richards Signed Date/Time: 01/10/211424 DD/ 142 EKG Data^: EKG 1: Attestation: I personally reviewed and interpreted this EKG as follows: EKG interpretation date: 01/10/21 Interpretation: Atrial fibrillation with PVC present., 92 bpm, no ST segment elevation or depression seen. EKG 2: Attestation: I personally reviewed and interpreted this EKG as follows: EKG interpretation date: 01/10/21 Interpretation: Atrial fibrillation, with rate control. 85 bpm, no ST segment elevation or depression. No acute change from previous EKG done 2 hours ago at 1347. Discharge Plan Discharge Patient Disposition: Home Clinical Impression: Chest pain Qualifiers: Chest pain type: unspecified Qualified Code(s): R07.9 - Chest pain, unspecified Condition: Stable Prescriptions: No Action aspirin 81 mg tablet,delayed release (DR/EC) 81 mg PO DAILY@07 RF: 0 omega-3 fatty acids [Fish Oil Concentrate] 1,000 mg capsule 1,000 mg PO BID@, RF: 0 nitroglycerin 0.4 mg tablet, sublingual 0.4 mg SUBLINGUAL Q5M PRN (Reason: Chest Pain) RF: 0 Trulance 3 mg tablet 3 mg PO DAILY@07 RF: 0 gabapentin 300 mg capsule See Rx Instructions .ROUTE .COMPLEX Qty: 120 RF: 2 atorvastatin 40 mg tablet 40 mg PO DAILY@18 RF: 0 doxycycline hyclate 100 mg capsule 100 mg PO DAILY@07 RF: 0 metoprolol succinate 50 mg tablet extended release 24 hr 50 mg PO DAILY@07 RF: 0 spironolactone 25 mg tablet 25 mg PO DAILY@07 RF: 0 bumetanide 1 mg tablet 1 mg PO DAILY@07 RF: 0 lisinopril 2.5 mg tablet 2.5 mg PO DAILY@18 RF: 0 Janumet 50-1,000 mg tablet 1 tab PO BID@ RF: 0 Lantus Solostar U-100 Insulin 100 unit/mL (3 mL) insulin pen 85 unit SUBCUT BID@ RF: 0 Eliquis 5 mg tablet 5 mg PO BID@ RF: 0 Invokana 300 mg tablet 300 mg PO DAILY@07 RF: 0 Discharge Orders: Discharge ED (Routine); Ordered 01/10/21 Ordered By: Cameron Hubbard Referrals: Alana Davila MD [Primary Care Provider] - Discharge Diet: Regular Discharge Activity: Increase activity as tolerated Patient Instructions: Chest Pain (ED) Activity Restrictions/Additional Instructions: Follow-up with medical provider as directed in your next scheduled appointment. Continue taking all previously prescribed home medications. Return to the ER or your medical provider if condition worsens. Please read and understand discharge instructions. If any questions, please ask. Coding Level of Care Code ED Mobile Lab Technician for Amanda Fwd Exam Comprehensive
[2021-01-10] MEDS: nitroglycerin 0.4 mg sublingual Tablet SUBLINGUAL (14:16)
--- NOTE | 2021-01-10 14:17 | PC.NURSE ---
nitroglycerin 1 tab SL, patient c/o chest pain 01/18 at this time.
--- NOTE | 2021-01-10 14:18 | PC.NURSE ---
patient refuse morphine and zofran at this time
[2021-01-10 14:22] LABS: Basophils # 0.1 10^3/uL (0.0-0.1); Basophils % 0.6 %; Eosinophils # 0.2 10^3/uL (0.0-0.8); Eosinophils % 1.5 %; Hematocrit 48.1 % (42.0-52.0); Hemoglobin 15.2 g/dL (11.7-16.6); Lymphocytes # 3.2 10^3/uL (0.8-4.8); Lymphocytes % 22.4 %; Mean Corpuscular HGB Conc 31.6 g/dL (30.0-36.0); Mean Corpuscular Hemoglobin 27.5 pg (28.0-34.0); Monocytes # 0.8 10^3/uL (0.2-0.9); Monocytes % 5.6 %; Neutrophils # 9.92 10^3/uL (1.8-7.7); Neutrophils % 69.5 %; Nucleated Red Blood Cells % 0 %; Platelet Count 245 10^3/cmm (130-400); Red Blood Count 5.53 10^6/uL (4.1-5.3); Red Cell Distribution Width 14.2 % (12.1-15.1); White Blood Count 14.3 10^3/uL (4.0-10.0)
--- NOTE | 2021-01-10 14:23 | PC.NURSE ---
patient stated chest pain getting worse, pain 5/10 5 minutes after nitroglycerin SL
[2021-01-10 14:47] LABS: Troponin(5th) Baseline 17 ng/L (0-15)
[2021-01-10 14:54] LABS: Alanine Aminotransferase 9 U/L (0-41); Albumin Level 4.2 g/dL (3.5-5.2); Alkaline Phosphatase 95 IU/L (40-130); Anion Gap 12.9 (5-19); Aspartate Amino Transferase 12 U/L (0-40); Blood Urea Nitrogen 14 mg/dL (6-20); Calcium 8.9 mg/dL (8.5-10.5); Carbon Dioxide 29 mmol/L (22-29); Chloride 99 mmol/L (98-107); Globulin 2.9 g/dL (1.3-4.6); Glomerular Filtration Rate 78.8 mL/min (90-130); Glucose 75 mg/dL (65-115); NT Pro B Type Natriuretic Pept 562 pg/mL (0-125); Osmolality Calculated 283 mOsm/kg (285-295); Potassium 3.9 mmol/L (3.5-5.1); Sodium 137 mmol/L (136-145); Total Bilirubin 0.5 mg/dL (0.15-1.2); Total Protein 7.1 g/dL (6.6-8.7)
--- NOTE | 2021-01-10 15:12 | PC.NURSE ---
patient denied any chest pain at this time. no acute distress noted
--- NOTE | 2021-01-10 15:13 | PC.PHAR ---
pt states he takes care of his medications-pt states he takes invokana and janumet
--- NOTE | 2021-01-10 15:47 | ECG_ITS ---
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1970 Requested By: Cameron Hubbard Order Number: [id number] Jean Marie MD: CAMMIE SINGLETARY Measurements Intervals [place] Rate: 85 P: [place]: QRS: 9 QRSD: 98 T: 227 QT: 335 QTc: 398 Interpretive Statements ATRIAL FIBRILLATION NONSPECIFIC T-WAVE ABNORMALITY Compared to ECG 01/10/2021 13:47:37 Ventricular premature complex(es) no longer present Aberrant conduction of supraventricular beat(s) no longer present T-wave abnormality still present Electronically Signed On 01-10-2021 20:00:56 NANOSCIENCE TECHNICIAN by CAMMIE SINGLETARY [email or web address].[email or web address]/store/OM/[id number]
--- NOTE | 2021-01-10 16:25 | PC.NURSE ---
patient denied any chest pain at this time.
== END 2021-01-10 17:22 | disposition home or self-care (01) ==
PROVIDERS: Emergency Provider Physician Assistant; PCP Family Medicine
DX: R07.9 Chest pain, unspecified (principal); Z79.01 Long term (current) use of anticoagulants; Z79.82 Long term (current) use of aspirin; Z79.4 Long term (current) use of insulin; E11.40 Type 2 diabetes mellitus with diabetic neuropathy, unspecified; I10 Essential (primary) hypertension; E78.2 Mixed hyperlipidemia; I48.0 Paroxysmal atrial fibrillation; F17.220 Nicotine dependence, chewing tobacco, uncomplicated
CPT/HCPCS: 36415; 71045; 80053; 83880; 84484; 85025; 93005; 96374; 96375; 99284

== ENCOUNTER → 2021-01-19 09:54 | Outpatient (BNVA) | payer MEDICAID, SELFPAY | PROVIDERS: PCP Family Medicine; Visit Provider Family Medicine | DX: E11.628 Type 2 diabetes mellitus with other skin complications; E11.9 Type 2 diabetes mellitus without complications; Z79.4 Long term (current) use of insulin; I10 Essential (primary) hypertension | CPT/HCPCS: 80053; 83036; 85025 ==

== ENCOUNTER → 2021-05-04 11:00 | Outpatient (BNVA) | payer MEDICAID, SELFPAY | PROVIDERS: PCP Family Medicine; Visit Provider Dermatology | DX: L66.3 Perifolliculitis capitis abscedens (principal) | CPT/HCPCS: 87070 ==

== ENCOUNTER → 2021-05-08 10:15 | Outpatient (BNVA) | payer MEDICAID, SELFPAY | PROVIDERS: PCP Family Medicine; Visit Provider Family Medicine | DX: E11.628 Type 2 diabetes mellitus with other skin complications (principal); Z79.4 Long term (current) use of insulin; I10 Essential (primary) hypertension; I48.0 Paroxysmal atrial fibrillation; E78.2 Mixed hyperlipidemia; E11.40 Type 2 diabetes mellitus with diabetic neuropathy, unspecified | CPT/HCPCS: 80053; 80061; 83036 ==

== ENCOUNTER 2021-05-09 06:39 | Outpatient (CLI) | payer MEDICAID, SELFPAY ==
[2021-05-09 07:08] VITALS: BMI 42.7
--- NOTE | 2021-05-09 07:27 | ECG_ITS ---
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 Interpretive Statements NAME OF STUDY: LEXISCAN SESTAMIBI STRESS TEST INDICATION: Chest Pain PROCEDURE: At the baseline, the blood pressure was 130/80 mm Hg, oxygen saturation 97% with a heart rate of 101 bpm. The electrocardiogram showed atrial fibrillation with rapid response at 1 1 bpm. Normal axis and nonspecific ST-T wave changes. The Lexiscan was infused over a period of 20 seconds. A total of 0.4 milligrams of Lexiscan was infused. The stress phase was continued for a total of 5 minutes. Heart rate at the end of the stress phase was 113 bpm, oxygen saturation 99% with a blood pressure of 210/70 mmHg. The EKG at the peak infusion revealed atrial fibrillation with no significant ST-T wave changes. The study was terminated due to protocol completion. Sestamibi was injected 20 seconds after the Lexiscan infusion. Blood pressure at the end of the recovery phase was 110/78 mmHg, oxygen saturation 99% with a heart rate of 113 beats per minute. CONCLUSION: 1. No significant EKG changes with the LexiScan infusion. 2. No LexiScan induced chest pain or cardiac arrhythmia. 3. Normal blood pressure and heart rate response. 4. Sestamibi/sestamibi perfusion scan pending; see separate report. RESULTS TO LOGAN CLIFFORD Electronically Signed On 05-11-2021 17:06:57 CDT by Priscila Anderson M.D. [id number]
--- NOTE | 2021-05-09 07:28 | NMCV_ITS ---
NM paul perf SPECT r/s* [id number] Allen Prince Age: 50 Gender: M : 1970 Exam Date: 05/09/2021 07:28 Ordering Phys: Priscila Anderson MD ([email or web address]) Technologist: JULIANA Mena Exam Location: [facility] Indications: CHEST PAIN STRESS TEST Please see separate stress test report in [facility] for full findings IMAGE PROTOCOL Rest/Stress 1 Lexiscan Day Radiopharmaceutical Dose (mCi) Administration Site Administered by Rest: Tc-99m 10.8 IV JULIANA Antoine Sestamibi Stress:Tc-99m 33.0 IV JULIANA Mena Sestamibrittany Rest: 09-May-2021 60 Discovery 630 Stress: 09-May-2021 30 Discovery 630 0.4mg Lexiscan. Supine position only as patient was unable to lay prone. SPECT RESULTS Technical Quality: Excellent Raw Data Analysis: Normal Image Corrections: No attenuation or motion correction applied Summed Stress Score: 1 Summed Rest Score: 1 Summed Difference Score: 1 PERFUSION FINDINGS Patchy area of decreased tracer uptake of mid to apical anterior, mid anteroseptal and mid inferolateral figueroa on rest images with somewhat improved tracer uptake on supine stress images. FUNCTIONAL RESULTS (calculated via Gated SPECT) Stress Image LV EF (%): 65 Stress EDV (mL):162 TID: 0.98 Stress ESV (mL):56 FUNCTIONAL FINDINGS: The left ventricle is normal in size. Transient Ischemia Dilatation of 0.98. There is normal left ventricular systolic function. The left ventricular ejection fraction is normal with a value of 65%. There is normal left ventricular wall thickening with no regional wall motion abnormality. Increased end-diastolic volume. IMPRESSIONS 1. Patchy areas of decreased tracer uptake of mid to apical anterior, mid anteroseptal and mid inferolateral figueroa with somewhat improved tracer uptake on supine stress images. 2. This is suggestive of attenuation artifact. 3. Overall left ventricular systolic function is normal without regional wall motion abnormalities. 4. The left ventricular ejection fraction is normal with a value of 65%. 5. No coronary ischemia based on the study Priscila Anderson MD (Electronically Signed) Final Date: 11 May 2021 17:31 S
[2021-05-09] MEDS: regadenoson 0.4 Mg/5 ml Syringe IVP (08:53)
[2021-05-09 09:10] VITALS: BP 118/63; PULSE 83
== END 2021-05-09 06:40 | disposition home or self-care (01) ==
LOC: CDL 06:40
PROVIDERS: PCP Family Medicine; Visit Provider Internal Medicine Cardiovascular Disease
DX: R07.9 Chest pain, unspecified (principal)
CPT/HCPCS: 78452; 93017; A9500; J2785

== ENCOUNTER → 2021-05-18 08:08 | Outpatient (BNVA) | payer MEDICAID, SELFPAY | PROVIDERS: PCP Family Medicine; Visit Provider Urology | DX: N52.9 Male erectile dysfunction, unspecified (principal); R39.13 Splitting of urinary stream; N39.43 Post-void dribbling | CPT/HCPCS: 81003 ==

== ENCOUNTER → 2021-07-31 08:28 | Outpatient (BNVA) | payer MEDICAID, SELFPAY | PROVIDERS: PCP Family Medicine; Visit Provider Family Medicine | DX: E11.628 Type 2 diabetes mellitus with other skin complications (principal); Z79.4 Long term (current) use of insulin; I10 Essential (primary) hypertension; I48.0 Paroxysmal atrial fibrillation; E11.40 Type 2 diabetes mellitus with diabetic neuropathy, unspecified; E11.9 Type 2 diabetes mellitus without complications; M54.12 Radiculopathy, cervical region; E78.2 Mixed hyperlipidemia | CPT/HCPCS: 80048; 83036 ==

== ENCOUNTER 2021-10-31 17:00 | Emergency (ER) | payer MEDICAID, SELFPAY ==
[2021-10-31 18:48] VITALS: BP 133/76; PULSE 110; RESP 18; TEMP 37.2; O2SAT 95; BMI 42.7
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
[2021-10-31] MEDS: HYDROcodone-acetaminophen 7.5-325 mg Tablet 1 TAB PO ×2 (20:05→21:00)
--- NOTE | 2021-11-01 08:08 | PC.SOCIAL ---
Referral received from ED provider Dr Hubbard for ortho referral. Called Alana at Ortho clinic and provided information. She will review and staff will call patient for appt.
--- NOTE | 2021-11-09 15:47 | DCPLANNER ---
Patient had a follow up appointment scheduled with ortho - patient did attend appointment.
== END 2021-10-31 21:02 | disposition home or self-care (01) ==
PROVIDERS: Emergency Provider Physician Assistant; PCP Family Medicine
DX: S80.02XA Contusion of left knee, initial encounter (principal); W55.22XA Struck by cow, initial encounter; M25.462 Effusion, left knee
CPT/HCPCS: 29530; 73562; 73590; 99283

== ENCOUNTER → 2021-11-06 14:10 | Outpatient (BNVA) | payer MEDICAID, SELFPAY | PROVIDERS: PCP Family Medicine; Visit Provider Specialist | DX: S89.92XA Unspecified injury of left lower leg, initial encounter (principal); X58.XXXA Exposure to other specified factors, initial encounter | CPT/HCPCS: 73560; 73565 ==

== ENCOUNTER 2021-11-06 15:52 | Outpatient (CLI) | payer MEDICAID, SELFPAY | END 2021-11-06 15:53 | disposition home or self-care (01) | LOC: SPT 15:53 | PROVIDERS: PCP Family Medicine; Visit Provider Specialist | DX: Z46.89 Encounter for fitting and adjustment of other specified devices (principal); S89.92XD Unspecified injury of left lower leg, subsequent encounter; X58.XXXD Exposure to other specified factors, subsequent encounter; M25.562 Pain in left knee | CPT/HCPCS: 97760; L1832 ==

== ENCOUNTER 2021-12-07 13:04 | Outpatient (CLI) | payer MEDICAID, SELFPAY ==
--- NOTE | 2021-12-07 13:13 | MR_ITS ---
WS: [id number] MRI LEFT KNEE NONCONTRAST TECHNIQUE: Axial PD, coronal PD fat sat, coronal PD, sagittal PD, and sagittal PD fat-sat images obta ined. CLINICAL INFORMATION: S89.92XA - Unspecified injury of left lower leg, initial ... COMPARISON: None. FINDINGS: Distal quadriceps and patella tendons are intact. Hypertrophic patella. Normal PCL. High-grade comple te tear of the ACL. No normal-appearing ACL fibers. Moderate suprapatellar effusion. Subcutaneous sapna ma involving the anterior and posterior soft tissues. Chronic thinning of the medial meniscus. Chronic intrasubstance signal abnormality involving the late ral meniscus with peripheral extrusion. Small horizontal tear involving the lateral meniscus extendin g to the free edge of the meniscus. Normal medial and lateral collateral ligaments. Lateral collateral ligament appears intact. Normal po pliteal fossa. Moderate chondromalacia patella. No significant subchondral edema. Normal medial and l ateral patellar retinaculum. Small amount of edema with contusion involving the posterior medial and posterior lateral tibial plateau. Slightly depressed posterior lateral tibial plateau fracture. Tiny nondisplaced fracture involving the posterior medial tibial plateau. No edema in the femoral condyle s. MR/MR knee LT wo con* [id number] IMPRESSION: 1. High-grade complete tear of the ACL. No normal ACL fibers visualized. Chika l PCL. 2. Moderate joint effusion with soft tissue edema. 3. Edema with small subchondral fractures in the posterior lateral posterior m edial and posterior lateral tibial plateau. Slight depression in the posterior lateral tibial plateau. 4. Chronic thinning of the medial meniscus. No acute appearing medial meniscal tears. Small horizontal tear involving the posterior horn lateral meniscus ext ending to articular surface. Mild peripheral extrusion of the lateral meniscus. 5. Medial and lateral collateral ligaments are intact. 6. Moderate chondromalacia patella. Outbridge grading: grade III: partial-thickness cartilage loss with focal ulcer ation
== END 2021-12-07 13:05 | disposition home or self-care (01) ==
PROVIDERS: PCP Family Medicine; Visit Provider Specialist
DX: S83.512A Sprain of anterior cruciate ligament of left knee, initial encounter (principal); M25.462 Effusion, left knee; R60.0 Localized edema; S82.142A Displaced bicondylar fracture of left tibia, initial encounter for closed fracture; X58.XXXA Exposure to other specified factors, initial encounter; M22.42 Chondromalacia patellae, left knee
CPT/HCPCS: 73721

== ENCOUNTER → 2022-01-05 09:28 | Outpatient (BNVA) | payer MEDICAID, SELFPAY | PROVIDERS: PCP Family Medicine; Visit Provider Orthopaedic Surgery | DX: Z01.812 Encounter for preprocedural laboratory examination (principal); Z20.822 Contact with and (suspected) exposure to COVID-19 | CPT/HCPCS: 87635 ==

== ENCOUNTER → 2022-01-08 11:24 | Outpatient (BNVA) | payer MEDICAID, SELFPAY | PROVIDERS: PCP Family Medicine; Visit Provider Family Medicine | DX: I10 Essential (primary) hypertension (principal); E11.628 Type 2 diabetes mellitus with other skin complications; Z79.4 Long term (current) use of insulin; S89.92XA Unspecified injury of left lower leg, initial encounter; I48.0 Paroxysmal atrial fibrillation; E11.9 Type 2 diabetes mellitus without complications; S83.282A Other tear of lateral meniscus, current injury, left knee, initial encounter; Z01.818 Encounter for other preprocedural examination | CPT/HCPCS: 80053; 83036; 85025 ==

== ENCOUNTER 2022-01-11 12:13 | Day surgery (SDC) | payer MEDICAID, SELFPAY ==
[2022-01-10 13:03] VITALS: BMI 42.7
[2022-01-11] VITALS (9 sets, daily range): BP systolic 120–170; BP diastolic 81–102; PULSE 82–132; RESP 12–19; TEMP 36.2–36.7; O2SAT 90–98
[2022-01-11] MEDS: sodium chloride 0.9% 1,000 ML 30 ML IV (12:47)
[2022-01-11 12:54] LABS: Glucose Point of Care 181 mg/dL (70-110)
--- NOTE | 2022-01-11 12:54 | P.ANESASSM_ITS ---
Pre-Anesthetic Assessment Height/Weight: Height 1.96 m Weight 163.293 kg Temp Pulse Resp BP Pulse Ox 97.7 F 93 18 124/90 98 01/11/22 12:26 01/11/22 12:26 01/11/22 12:26 01/11/22 12:26 01/11/22 12:26 Preop Diagnosis: Knee Operation Date: 12/28/21 08:00 Proposed Procedures p Left Knee [id number]/s83.282a(Left) - Ryne Dee MD Operation Date: 01/11/22 14:25 Proposed Procedures p Knee Arthroscopy(Left) - Ryne Dee MD Familial anesthetic complications: None Was Beta Addi taken within 24 hours: N/A Was Clonidine taken within 24 hours: N/A Last intake: Intake Last Liquid Date 01/10/22 Last Liquid Time 22:00 Last Solid Date 01/10/22 Last Solid Time 22:00 Social No alcohol and No tobacco Exam alert, oriented x 3, clear to auscultation bilaterally and regular rate & rhythm Airway Mallampati: Class IV Dentition: other (extremely poor dentition, multiple missing, chipped and broken off, discolored) Comments: Comments: large neck circumference Pulmonary Sleep Apnea CV/HEM Atrial Fibrillation, Congestive Heart Failure and Hypertension negative stress test 05/01 GI Gastroesophageal Reflux Disease Metabolic Diabetes Mellitus, Hyperlipidemia and Morbid Obesity Anesthetic Plan ASA status: 3 Anesthesia: General Medications/Allergies Home Medications Medication Instructions Recorded Confirmed Last Taken Type aspirin 81 mg tablet,delayed 81 mg PO DAILY@12/09/19 01/10/22 01/07/22 History release nitroglycerin 0.4 mg sublingual 0.4 mg SUBLINGUAL Q5M PRN 01/16/20 01/10/22 Unknown History tablet omega-3 fatty acids 1,000 mg 1,000 mg PO BID@18 cap 01/16/20 01/10/22 01/10/22 08:00 History capsule (Fish Oil Concentrate) plecanatide 3 mg tablet (Trulance) 3 mg PO DAILY@08/31/20 01/10/22 01/10/22 08:00 History atorvastatin 40 mg tablet See Rx Instructions .ROUTE 05/08/21 01/10/22 01/09/22 20:00 Rx .COMPLEX 90 Days #90 tab zinc 50 mg tablet 100 mg PO BID tab 05/18/21 01/10/22 01/10/22 History clobetasol 0.05 % scalp solution 1 applic TOPICAL DAILY #50 ml 07/27/21 01/10/22 01/09/22 Rx gabapentin 300 mg capsule See Rx Instructions .ROUTE 07/31/21 01/10/22 01/10/22 20:00 Rx .COMPLEX #120 cap bumetanide 1 mg tablet See Rx Instructions .ROUTE 11/27/21 01/11/22 01/10/22 Rx .COMPLEX #30 tab ketoconazole 2 % shampoo 1 applic TOPICAL .2-3 x weekly 11/28/21 01/10/22 01/09/22 Rx #120 ml MDD 1x daily HUMA #1 ea NS 01/08/22 01/08/22 Unknown Rx apixaban 5 mg tablet (Eliquis) See Rx Instructions .ROUTE 01/08/22 01/10/22 01/08/22 Rx .COMPLEX #60 tablet canagliflozin 300 mg tablet 300 mg PO DAILY 30 Days #30 tab 01/08/22 01/10/22 01/10/22 08:00 Rx (Invokana) insulin glargine 100 unit/mL (3 90 unit (0.9 mL) SUBCUT BID 30 01/08/22 01/10/22 01/10/22 08:00 Rx mL) subcutaneous pen ( #54 ml Solostar U-100 Insulin) lisinopril 5 mg tablet 5 mg PO DAILY 90 Days #90 tab 01/08/22 01/10/22 01/10/22 20:00 Rx metoprolol succinate 50 mg 50 mg PO DAILY@07 #90 tab 01/08/22 01/10/22 01/10/22 08:00 Rx tablet,extended release 24 hr sitagliptin 50 mg-metformin 1,000 1 tab PO BID@,18 30 Days #60 tab 01/08/22 01/10/22 01/10/22 08:00 Rx mg tablet (Janumet) spironolactone 25 mg tablet 25 mg PO DAILY 30 Days #30 tab 01/08/22 01/10/22 01/10/22 08:00 Rx Allergies Allergy/AdvReac Type Severity Reaction Status Date / Time No Known Allergies Allergy Verified 01/08/22 07:16 Current Medications Generic Name Dose Route Start Last Admin Trade Name Sherwinq PRN Reason Stop Dose Admin Sodium Chloride 1,000 mls @ 30 mls/hr 01/11/22 12:30 01/11/22 12:47 Sodium Chloride 0.9% IV 01/12/22 12:29 30 mls/hr .Q24H ALLYN Administration PFSH Anesthesia Medical History 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 Constipation Diabetic neuropathy, painful Erectile dysfunction Hypertension 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 Low testosterone in male Mixed hyperlipidemia Obstructive sleep apnea syndrome Pain management contract signed Paroxysmal atrial fibrillation Post-void dribbling Stenosis of cervical spine with myelopathy Type 2 diabetes mellitus Surgical History H/O cataract extraction H/O esophagogastroduodenoscopy (04/21/20) gastritis and duodenitis S/P cholecystectomy Family History Mother Dementia Brother Dementia Other Heart disease Denies family history of Anesthesia complication Bleeding disorder Social History Second hand smoke exposure: No Alcohol intake: never Marital status: Current occupational status: employed Current occupation: [employer] History of recent travel: No Data Anesthesia Cardiac Studies: Transesophageal Echocardiogram 10/19/20 Sestamibi Stress Test (Cardiology) 05/09/21
--- NOTE | 2022-01-11 14:06 | W.PM.OPSFHP ---
Same Day Surgery H&P Indication for Procedure/HPI DATE OF PROCEDURE: January 11, 2022 CHIEF COMPLAINT/INDICATIONFOR SURGICAL PROCEDURE: Left lateral meniscal tear PREOP DIAGNOSIS: Left lateral meniscal tear, PLANNED PROCEDURE: Operation Date: 12/28/21 08:00 Proposed Procedures p Left Knee [id number](Left) - Ryne Dee MD Operation Date: 01/11/22 14:25 Proposed Procedures p Knee Arthroscopy(Left) - Ryne Dee MD The patient is a 51-year-old male who was hit by a cow on October 31 with resulting pain in his left knee. As he failed to improve an MRI was obtained showing a horizontal tear of his lateral meniscus and a suspected high-grade anterior cruciate ligament tear. He is taken to surgery today for a diagnostic arthroscopy and likely partial lateral meniscectomy. He has no laxity on Ophelia and we are planning nonoperative treatment of his cruciate ligament injury. Medications/Allergies* Home Medications Medication Instructions Recorded Confirmed Type aspirin 81 mg tablet,delayed 81 mg PO DAILY@12/09/19 01/10/22 History release nitroglycerin 0.4 mg sublingual 0.4 mg SUBLINGUAL Q5M PRN 01/16/20 01/10/22 History tablet omega-3 fatty acids 1,000 mg 1,000 mg PO BID@18 cap 01/16/20 01/10/22 History capsule (Fish Oil Concentrate) plecanatide 3 mg tablet (Trulance) 3 mg PO DAILY@07 08/31/20 01/10/22 History zinc 50 mg tablet 100 mg PO BID tab 05/18/21 01/10/22 History Allergies/Adverse Reactions Allergy/AdvReac Type Severity Reaction Status Date / Time No Known Allergies Allergy Verified 01/08/22 07:16 Current Medications: Generic Name Dose Route Start Last Admin Trade Name Freq PRN Reason Stop Dose Admin Sodium Chloride 1,000 mls @ 30 mls/hr 01/11/22 12:30 01/11/22 12:47 Sodium Chloride 0.9% IV 01/12/22 12:29 30 mls/hr .Q24H ALLYN Administration Pertinent History/Comorbid Conditions* Medical History (Updated 12/12/21 @ 09:10 by Ryne Dee MD) 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 Constipation Diabetic neuropathy, painful Erectile dysfunction Hypertension 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 Low testosterone in male Mixed hyperlipidemia Obstructive sleep apnea syndrome Pain management contract signed Paroxysmal atrial fibrillation Post-void dribbling Stenosis of cervical spine with myelopathy Type 2 diabetes mellitus Surgical History (Updated 04/21/20 @ 11:16 by Jim Capps MD) H/O cataract extraction H/O esophagogastroduodenoscopy (04/21/20) gastritis and duodenitis S/P cholecystectomy Family History (Updated 04/01/20 @ 09:09 by Niurka Ortega RN) Dementia Mother Brother Heart disease Denies family history of Anesthesia complication Bleeding disorder Social History Second hand smoke exposure: No Alcohol intake: never Marital status: Current occupational status: employed Current occupation: [employer] History of recent travel: No Pertinent Exam Findings alert, oriented x 3, clear to auscultation bilaterally and regular rate & rhythm Recommendations Surgery/Procedure today Coding Level of Care Code Acute General 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
[2022-01-11] MEDS: morphine 4 mg/mL SDV 1 mL 8 MG XX (14:55)
--- NOTE | 2022-01-11 15:14 | PM.OP ---
Operative Report Date of procedure: January 11, 2022 Pre-op diagnosis: Preop Diagnosis Left lateral meniscal tear, anterior cruciate ligament tear Post-op diagnosis: same Procedure done: Arthroscopic left lateral partial meniscectomy, debridement torn anterior cruciate ligament stump Pathology: none sent Surgeon: Ryne Dee Anesthesia: General Estimated blood loss (mL): 5 Tourniquet time (min): 18 Findings: The patient had complex tearing involving the central 60% of the posterior and middle thirds of the lateral meniscus consisting of central flap tears and more peripheral horizontal cleavage. After debridement approximately 30% of the middle and posterior lateral meniscus remain. He had complete disruption of his anterior cruciate ligament with incomplete scarring of the anterior cruciate ligament back on the posterior cruciate ligament. His chondral surfaces were healthy. Condition: stable Disposition: PACU Procedure: The patient was taken to the operating room given a general anesthesia. He was prepped and draped in the supine position with a tourniquet on the left thigh. The knee was infiltrated with 30 cc of 0.5% Marcaine with epi and 10 mg of morphine. A timeout was performed. The knee was initially entered through the anterior medial and anterior lateral portal. The diagnostic portion arthroscopy was performed. The medial compartment was healthy. Large stump of tibial based anterior cruciate ligament was identified unstable in the intercondylar notch. Utilizing an incisor shaver and Mary and Nephew Werewolf probe. Remnants of anterior cruciate ligament stump were removed. The leg was then placed in a [id number] position revealing the complex tearing the lateral meniscus. Initially a 4.5 mm incisor shaver was used to perform. Unstable flaps back. This brought us back to a narrow horizontal cleavage the Mary and Nephew Werewolf was then used to debride the lateral meniscus back to a stable rim leaving approximately 30% the posterior third and middle third of the lateral meniscus remaining. The knee was irrigated with saline. Portals are closed with 3-0 Prolene. Sterile dressings were applied. The patient was extubated and taken to recovery in stable condition.
[2022-01-11] MEDS: HYDROmorphone 1 mg/mL INJ 1 mL 0.5 MG IVP (15:29)
--- NOTE | 2022-01-11 19:24 | ANE.PACU2 ---
Inpatient post-anesthesia follow up: Airway intact: Yes Vital signs: Temperature 97.2 F Pulse Rate 88 Respiratory Rate 18 Blood Pressure 120/97 Pulse Oximetry 94 Oxygen Delivery Me thod Room Air Oxygen Flow Rate 3 Fraction of Inspir ed Oxygen Hydration adequate: Yes Nausea and vomiting: No Pain level: 5 Mental status: Baseline
== END 2022-01-11 16:43 | disposition home or self-care (01) ==
PROVIDERS: PCP Family Medicine; Visit Provider Orthopaedic Surgery
PROC: (CPT 29870; principal; 2022-01-11 14:25)
DX: S83.282A Other tear of lateral meniscus, current injury, left knee, initial encounter (principal); X58.XXXA Exposure to other specified factors, initial encounter; G47.30 Sleep apnea, unspecified; I11.0 Hypertensive heart disease with heart failure; I50.9 Heart failure, unspecified; E78.5 Hyperlipidemia, unspecified; E66.01 Morbid (severe) obesity due to excess calories; Z68.41 Body mass index [BMI] 40.0-44.9, adult; Z79.82 Long term (current) use of aspirin; E11.42 Type 2 diabetes mellitus with diabetic polyneuropathy; E78.2 Mixed hyperlipidemia; I48.0 Paroxysmal atrial fibrillation
CPT/HCPCS: 29881; 36416; 82962; J0330; J0690; J1100; J1170; J2250; J2270; J2405; J2704; J3010; J3490; J7030

== ENCOUNTER → 2022-03-12 09:32 | Outpatient (BNVA) | payer MEDICAID, SELFPAY | PROVIDERS: PCP Family Medicine; Visit Provider Family Medicine | DX: I48.0 Paroxysmal atrial fibrillation (principal); E78.2 Mixed hyperlipidemia; I10 Essential (primary) hypertension; E11.628 Type 2 diabetes mellitus with other skin complications; Z79.4 Long term (current) use of insulin; E11.40 Type 2 diabetes mellitus with diabetic neuropathy, unspecified; E11.9 Type 2 diabetes mellitus without complications; L85.3 Xerosis cutis | CPT/HCPCS: 80053; 80061; 83036; 83721 ==

== ENCOUNTER → 2022-06-11 08:25 | Outpatient (BNVA) | payer MEDICAID, SELFPAY | PROVIDERS: PCP Family Medicine; Visit Provider Family Medicine | DX: E11.628 Type 2 diabetes mellitus with other skin complications (principal); Z79.4 Long term (current) use of insulin; K58.1 Irritable bowel syndrome with constipation; I10 Essential (primary) hypertension; I48.0 Paroxysmal atrial fibrillation; K59.04 Chronic idiopathic constipation | CPT/HCPCS: 80048; 83036 ==

== ENCOUNTER → 2022-09-11 09:31 | Outpatient (BNVA) | payer MEDICARE, MEDICAID, SELFPAY | PROVIDERS: PCP Family Medicine; Visit Provider Family Medicine | DX: I48.0 Paroxysmal atrial fibrillation (principal); E11.628 Type 2 diabetes mellitus with other skin complications; Z79.4 Long term (current) use of insulin; K58.1 Irritable bowel syndrome with constipation; E11.40 Type 2 diabetes mellitus with diabetic neuropathy, unspecified; M25.551 Pain in right hip; I10 Essential (primary) hypertension; M54.16 Radiculopathy, lumbar region; E11.9 Type 2 diabetes mellitus without complications | CPT/HCPCS: 72100; 73502; 80048; 83036 ==

== ENCOUNTER → 2022-09-19 09:24 | Outpatient (BNVA) | payer MEDICARE, MEDICAID, SELFPAY | PROVIDERS: PCP Family Medicine; Visit Provider Podiatrist Foot & Ankle Surgery | DX: I73.9 Peripheral vascular disease, unspecified (principal); B35.1 Tinea unguium; G62.9 Polyneuropathy, unspecified; E11.628 Type 2 diabetes mellitus with other skin complications; Z79.4 Long term (current) use of insulin; M20.21 Hallux rigidus, right foot; M20.22 Hallux rigidus, left foot; L84 Corns and callosities | CPT/HCPCS: 11056; 11721; 99204 ==

== ENCOUNTER 2022-11-13 06:00 | Outpatient (RCR) | payer MEDICARE, MEDICAID, SELFPAY | END 2022-12-11 23:59 | disposition home or self-care (01) | LOC: GPT 06:00 | PROVIDERS: PCP Family Medicine; Visit Provider Family Medicine | DX: M54.50 Low back pain, unspecified (principal); G89.29 Other chronic pain; M54.16 Radiculopathy, lumbar region | CPT/HCPCS: 97110; 97140; 97161; 97530 ==

== ENCOUNTER → 2022-11-26 10:38 | Outpatient (BNVA) | payer MEDICARE, MEDICAID, SELFPAY | PROVIDERS: PCP Family Medicine; Visit Provider Podiatrist Foot & Ankle Surgery | DX: I73.9 Peripheral vascular disease, unspecified (principal); E11.628 Type 2 diabetes mellitus with other skin complications; L60.1 Onycholysis; B35.1 Tinea unguium; G62.9 Polyneuropathy, unspecified; Z79.4 Long term (current) use of insulin; M20.21 Hallux rigidus, right foot; M20.22 Hallux rigidus, left foot; L84 Corns and callosities | CPT/HCPCS: 11055; 11721; 11730 ==

== ENCOUNTER → 2022-12-04 09:41 | Outpatient (BNVA) | payer MEDICARE, MEDICAID, SELFPAY | PROVIDERS: PCP Family Medicine; Visit Provider Podiatrist Foot & Ankle Surgery | DX: I73.9 Peripheral vascular disease, unspecified (principal); L60.1 Onycholysis; B35.1 Tinea unguium; G62.9 Polyneuropathy, unspecified; E11.628 Type 2 diabetes mellitus with other skin complications; Z79.4 Long term (current) use of insulin; M20.21 Hallux rigidus, right foot; M20.22 Hallux rigidus, left foot; L84 Corns and callosities | CPT/HCPCS: 99213 ==

== ENCOUNTER 2022-12-12 06:00 | Outpatient (RCR) | payer MEDICARE, MEDICAID, SELFPAY | END 2023-01-03 23:59 | disposition home or self-care (01) | LOC: GPT 06:00 | PROVIDERS: PCP Family Medicine; Visit Provider Family Medicine | DX: M54.50 Low back pain, unspecified (principal); G89.29 Other chronic pain; M54.16 Radiculopathy, lumbar region | CPT/HCPCS: 97110; 97112; 97140; 97530 ==

== ENCOUNTER 2022-12-25 17:25 | Observation (INO) | payer MEDICARE, MEDICAID, SELFPAY ==
[2022-12-25] VITALS (9 sets, daily range): BP systolic 115–159; BP diastolic 73–105; PULSE 72–125; RESP 20–27; TEMP 36.5; O2SAT 90–93; BMI 41.5
--- NOTE | 2022-12-25 18:57 | XRR_ITS ---
PROCEDURE INFORMATION: Exam: XR Chest Exam date and time: 12/25/2022 7:13 PM Age: 52 years old Clinical indication: Cough and dyspnea and fever; Additional info: Dyspnea; Cough; Fever TECHNIQUE: Imaging protocol: Radiologic exam of the chest. Views: 1 view. COMPARISON: CR XR chest 1V portable [id number] 01/10/2021 1:48 PM FINDINGS: Lungs: Ill-defined left basilar opacities. Pleural spaces: Unremarkable. No pleural effusion. No pneumothorax. Heart/Mediastinum: Unremarkable. No cardiomegaly. Bones/joints: Unremarkable. XR/XR chest 1V portable [id number] IMPRESSION: Left basilar pneumonia.
--- NOTE | 2022-12-25 19:06 | ECG_ITS ---
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 Measurements Intervals [place] Rate: 118 P: 0 SD: 0 QRS: 29 QRSD: 105 T: 49 QT: 328 QTc: 461 Interpretive Statements ATRIAL FIBRILLATION WITH RAPID VENTRICULAR RESPONSE Compared to ECG 01/10/2021 15:44:51 T-wave abnormality no longer present Electronically Signed On 12-25-2022 22:46:13 OVERHEAD CLEANER by Carlos A Alexander M.D. [id number]
--- NOTE | 2022-12-25 19:15 | W.ED.ABDPA2 ---
HPI - Abdominal Pain General: Chief Complaint: Upper Respiratory Infection Stated Complaint: cough Time Seen by Provider: 12/25/22 18:39 Source: patient Limitations: no limitations History of Present Illness: See nursing assessment. Patient with complaints of shortness of breath, cough productive of white and yellow sputum, low-grade fever to 99.7, and right upper quadrant abdominal pain that started about the same time since Saturday evening. Symptoms started 3 days ago. Patient also complains of nausea without any vomiting or diarrhea. He states he is not hungry and has had no food since Saturday evening. His initial oxygen saturation on room air was 89%. He states he has chronic atrial fibrillation and is on Eliquis. States he is also insulin-dependent diabetic. He does have a history of congestive heart failure. Denies any history of COPD. Complains of mild facial pain and mild forehead pain. Denies any sore throat. Past surgical history includes cholecystectomy and eye surgery. Denies any heart surgery. He does chew tobacco but denies cigarette or alcohol use. Associated Symptoms: Reports fever(s); Denies chills, diarrhea, dysuria, nausea and vomiting Review of Systems Const: Reports: fever(s) and body aches; Denies: chills Eyes: Denies: change in vision, blurry vision, photophobia or yellow eyes ENMT: Denies: throat pain, uvular edema, enlarged tonsils or odynophagia Card: Denies: chest pain, palpitations, edema or lightheadedness Resp: Reports: dyspnea and productive cough; Denies: wheezing or stridor GI: Reports: abdominal pain (Right upper quadrant); Denies: nausea, vomiting or diarrhea : Denies: flank pain, difficulty urinating or dysuria Musc: Denies: neck pain, back pain, extremity pain or extremity swelling Skin/Breast: Denies: rash, pruritus or erythema Neuro: Reports: headache(s) (Mild frontal); Denies: numbness in extremities Psych: Denies: anxiety Miguelito/Lymph: Denies: enlarged lymph nodes PFSH ED PFSH: Medical History 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 Constipation Diabetic neuropathy, painful Erectile dysfunction 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 Low testosterone in male Mixed hyperlipidemia Obstructive sleep apnea syndrome Pain management contract signed Paroxysmal atrial fibrillation Post-void dribbling Stenosis of cervical spine with myelopathy Type 2 diabetes mellitus Surgical History H/O cataract extraction H/O esophagogastroduodenoscopy (04/21/20) gastritis and duodenitis S/P cholecystectomy Family History Mother Dementia Brother Dementia Other Heart disease Denies family history of Anesthesia complication Bleeding disorder Social History Smoking and tobacco status: heavy tobacco smoker smokeless tobacco Smokeless tobacco user: chewing tobacco Smokeless tobacco details: 1.5 CANS PER DAY Second hand smoke exposure: No Alcohol intake: never Marital status: Current occupational status: employed Current occupation: [employer] History of recent travel: No Physical Exam Const: COMMON NORMALS: no acute distress, patient oriented x3, no limitations and well nourished GENERAL APPEARANCE: cooperative HENMT: COMMON NORMALS: normocephalic and atraumatic HEAD & SCALP: normocephalic and atraumatic FACE & SINUS: normal facial exam THROAT: no uvular edema Eye: COMMON NORMALS: EOMs intact bilaterally Neck/C-Spine: COMMON NORMALS: full ROM, no lymphadenopathy, supple and no meningeal signs GENERAL: Yes normal visual inspection Lymph: LYMPHATIC: no lymphadenopathy noted Chest: COMMONS NORMALS: normal inspection of the chest and normal palpation of entire chest wall CHEST: No Ecchymosis present and No rash Resp: COMMON NORMALS: normal respiratory effort, No retractions and clear to auscultation bilaterally EFFORT & INSPECTION: No respiratory distress AUSCULTATION: clear to auscultation bilaterally Cardio: COMMON NORMALS: Peripheral pulses 2+ throughout JUGULAR VENOUS DISTENTION: no JVD RATE: tachycardic RHYTHM: abnormal rhythm irregularly irregular HEART SOUNDS: no murmurs PERIPHERAL PULSES: Peripheral pulses 2+ throughout OTHER: No peripheral edema. GI: COMMON NORMALS: Normal to inspection, nondistended, normoactive bowel sounds present and Soft to palpation PALPATION: Yes Soft to palpation OTHER: Mild right upper quad abdominal pain. No hepatosplenomegaly. : COMMON NORMALS: Yes no CVA tenderness BLADDER/KIDNEY EXAM: Yes no CVA tenderness Back/Pelvis: COMMON NORMALS: no CVA tenderness Extremity: COMMON NORMALS: normal to inspection, full ROM and capillary refill normal Neuro: COMMON NORMALS: patient oriented x3, CN's II-XII intact bilaterally, no focal motor deficits and no sensory deficits noted MENINGEAL SIGNS: Yes no meningeal signs Psych: COMMON NORMALS: mental status grossly normal and Normal thought process present THOUGHT PROCESS: Normal thought process present Skin: COMMON NORMALS: no rashes or lesions noted and no wounds GENERAL SKIN EXAM: no rashes or lesions noted Course Vital Signs: Vital signs: Vital Signs Temperature 97.7 F 12/25/22 17:29 Pulse Rate 107 H 12/25/22 21:44 Respiratory Rate 24 H 12/25/22 21:44 Blood Pressure 132/73 12/25/22 21:44 Pulse Oximetry 92 12/25/22 21:44 Oxygen Delivery Me thod 12/25/22 21:44 Oxygen Flow Rate 4 12/25/22 21:44 MDM - Abdominal Pain Medical Decision Making Shortness of breath, right upper quad abdominal pain. Chest x-ray shows left lower lobe pneumonia. 2024: Discussed with hospitalist Dr. Ricardo. He will place patient in observation to CSU. He will write admission orders. 2054: hr 100 in afib. Lab Data 12/25/22 19:15 12/25/22 19:15 Labs/Radiology: Radiology Impressions Chest X-Ray 12/25/22 18:57 IMPRESSION: Left basilar pneumonia. Laboratory Results WBC 4.8 10^3/uL (4.0-10.0) 12/25/22 19:15 RBC 6.00 10^6/uL (4.1-5.3) H 12/25/22 19:15 Hgb 16.4 g/dL (11.7-16.6) 12/25/22 19:15 Hct 51.1 % (42.0-52.0) 12/25/22 19:15 MCV 85.2 fl (80-94) 12/25/22 19:15 MCH 27.3 pg (28.0-34.0) L 12/25/22 19:15 MCHC 32.1 g/dL (30.0-36.0) 12/25/22 19:15 RDW 14.6 % (12.1-15.1) 12/25/22 19:15 Plt Count 142 10^3/cmm (130-400) 12/25/22 19:15 MPV 10.2 fL (7.4-10.4) 12/25/22 19:15 Neut % (Auto) 63.5 % 12/25/22 19:15 Lymph % (Auto) 25.2 % 12/25/22 19:15 [place] % (Auto) 9.3 % 12/25/22 19:15 Eos % (Auto) 0.4 % 12/25/22 19:15 Baso % (Auto) 0.8 % 12/25/22 19:15 Neut # (Auto) 3.07 10^3/uL (1.8-7.7) 12/25/22 19:15 Lymph # (Auto) 1.2 10^3/uL (0.8-4.8) 12/25/22 19:15 [place] # (Auto) 0.5 10^3/uL (0.2-0.9) 12/25/22 19:15 Eos # (Auto) 0.0 10^3/uL (0.0-0.8) 12/25/22 19:15 Baso # (Auto) 0.0 10^3/uL (0.0-0.1) 12/25/22 19:15 Nucleated RBC % (auto) 0 % 12/25/22 19:15 Nucleated RBCs # 0.0 /100WBC 12/25/22 19:15 APTT 26.7 SECONDS (23.9-36.7) 12/25/22 19:15 Sodium 136 mmol/L (136-145) 12/25/22 19:15 Potassium 4.6 mmol/L (3.5-5.1) 12/25/22 19:15 Chloride 95 mmol/L (98-107) L 12/25/22 19:15 Carbon Dioxide 27 mmol/L (22-29) 12/25/22 19:15 Anion Gap 18.6 (5-19) 12/25/22 19:15 BUN 19 mg/dL (6-20) 12/25/22 19:15 Creatinine 1.1 mg/dL (0.7-1.2) 12/25/22 19:15 GFR Calculation 70.0 mL/min (90-130) L 12/25/22 19:15 Glucose 361 mg/dL (65-115) H 12/25/22 19:15 Calculated Osmolality 299 mOsm/kg (285-295) H 12/25/22 19:15 Lactic Acid 1.5 mmol/L (0.5-2.2) 12/25/22 19:15 Calcium 8.8 mg/dL (8.5-10.5) 12/25/22 19:15 Total Bilirubin 0.6 mg/dL (0.15-1.2) 12/25/22 19:15 AST 17 U/L (0-40) 12/25/22 19:15 ALT 13 U/L (0-41) 12/25/22 19:15 Alkaline Phosphatase 121 U/L (40-130) 12/25/22 19:15 Troponin T Baseline 15 ng/L (0-15) 12/25/22 19:14 Troponin T 120 Minute 14.43 ng/L (0-15) 12/25/22 20:50 Delta Troponin T -0.57 ABS# (0-10) L 12/25/22 20:50 NT-Pro-B Natriuret Pep 1055 pg/mL (0-125) H 12/25/22 19:15 Total Protein 7.2 g/dL (6.6-8.7) 12/25/22 19:15 Albumin 3.3 g/dL (3.5-5.2) L 12/25/22 19:15 Globulin 3.9 g/dL (1.3-4.6) 12/25/22 19:15 Lipase 21 U/L (13-60) 12/25/22 19:15 Influenza Type A Ag negative (Negative) 12/25/22 19:16 Influenza Type B Ag negative (Negative) 12/25/22 19:16 SARS-CoV-2 Ag (Rapid) negative (Negative) 12/25/22 19:16 Group A Strep Rapid Negative (Negative) 12/25/22 19:16 Imaging Data CXR: My impression: Left lower lobe infiltrate consistent with community-acquired pneumonia. Radiologist's impression: Procedure(s): XR chest 1V portable [id number] Accession Number(s): [id number] Report Number: [id number] PROCEDURE INFORMATION: Exam: XR Chest Exam date and time: 12/25/2022 7:13 PM Age: 52 years old Clinical indication: Cough and dyspnea and fever; Additional info: Dyspnea; Cough; Fever TECHNIQUE: Imaging protocol: Radiologic exam of the chest. Views: 1 view. COMPARISON: CR XR chest 1V portable [id number] 01/10/2021 1:48 PM FINDINGS: Lungs: Ill-defined left basilar opacities. Pleural spaces: Unremarkable. No pleural effusion. No pneumothorax. Heart/Mediastinum: Unremarkable. No cardiomegaly. Bones/joints: Unremarkable. XR/XR chest 1V portable [id number] IMPRESSION: Left basilar pneumonia. ? Dictated By: Aj Samayoa DO Signed By: Aj Samayoa DO Signed Date/Time: 12/25/222001 EKG Data EKG 1: I personally reviewed and interpreted this EKG as follows: EKG interpretation date: 12/25/22 EKG interpretation time: 19:10 Interpretation: EKG shows atrial fibrillation with rapid ventricular response with heart rate of 118. Normal axis. Normal QRS. Normal ST segments. Normal T waves. EKG 2: I personally reviewed and interpreted this EKG as follows: EKG interpretation date: 12/25/22 EKG interpretation time: 20:57 Prior EKG tracings: available for review (No change from previous except for rate) Interpretation: Impression atrial fibrillation with rapid ventricular rate with a heart rate of 108. Normal ST segment. Normal axis. Normal QRS. Normal QT interval. Discharge Plan Discharge Patient Disposition: Placed in Observation Admit Provider: Ashok Ricardo Clinical Impression: Abdominal pain, acute, right upper quadrant, Chronic atrial fibrillation with rapid ventricular response Community acquired pneumonia Qualifiers: Laterality: left Lung location: lower lobe of lung Qualified Code(s): J18.9 - Pneumonia, unspecified organism Coding Level of Care Code ED Kelly Machine Operator for Amanda Brennan
[2022-12-25 19:27] LABS: Basophils % 0.8 %; Eosinophils % 0.4 %; Hematocrit 51.1 % (42.0-52.0); Hemoglobin 16.4 g/dL (11.7-16.6); Lymphocytes # 1.2 10^3/uL (0.8-4.8); Lymphocytes % 25.2 %; Mean Corpuscular HGB Conc 32.1 g/dL (30.0-36.0); Mean Corpuscular Hemoglobin 27.3 pg (28.0-34.0); Mean Corpuscular Volume 85.2 fl (80-94); Mean Platelet Volume 10.2 fL (7.4-10.4); Monocytes # 0.5 10^3/uL (0.2-0.9); Monocytes % 9.3 %; Neutrophils # 3.07 10^3/uL (1.8-7.7); Neutrophils % 63.5 %; Nucleated Red Blood Cells % 0 %; Platelet Count 142 10^3/cmm (130-400); Red Cell Distribution Width 14.6 % (12.1-15.1); White Blood Count 4.8 10^3/uL (4.0-10.0)
[2022-12-25] MEDS: dilTIAZem 5 mg/mL SDV 5 mL 10 MG IVP (19:28)
[2022-12-25 19:43] LABS: Rapid Strep A Test Negative (Negative)
[2022-12-25 19:44] LABS: Partial Thromboplastin Time 26.7 SECONDS (23.9-36.7)
[2022-12-25 19:47] LABS: Influenza A by IFA negative (Negative); Influenza B by IFA negative (Negative); SARS Covid-2 Antigen negative (Negative)
[2022-12-25 19:48] LABS: Lactic Sepsis W/Reflex 1.5 mmol/L (0.5-2.2)
[2022-12-25] MEDS: dilTIAZem 100 MG in sodium chloride 0.9% (add-van) 100 ML IV (19:56)
[2022-12-25 19:58] LABS: Alanine Aminotransferase 13 U/L (0-41); Albumin Level 3.3 g/dL (3.5-5.2); Alkaline Phosphatase 121 U/L (40-130); Anion Gap 18.6 (5-19); Aspartate Amino Transferase 17 U/L (0-40); Blood Urea Nitrogen 19 mg/dL (6-20); Calcium 8.8 mg/dL (8.5-10.5); Carbon Dioxide 27 mmol/L (22-29); Chloride 95 mmol/L (98-107); Globulin 3.9 g/dL (1.3-4.6); Glucose 361 mg/dL (65-115); Lipase 21 U/L (13-60); NT Pro B Type Natriuretic Pept 1055 pg/mL (0-125); Osmolality Calculated 299 mOsm/kg (285-295); Potassium 4.6 mmol/L (3.5-5.1); Sodium 136 mmol/L (136-145); Total Bilirubin 0.6 mg/dL (0.15-1.2); Total Protein 7.2 g/dL (6.6-8.7)
[2022-12-25] MEDS: azithromycin 250 mg Tablet 500 MG PO (20:26)
[2022-12-25] MEDS: cefTRIAXone 1,000 MG in sodium chloride 0.9% (plus) 50 ML 100 MG IV (20:30)
--- NOTE | 2022-12-25 20:54 | ECG_ITS ---
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 Measurements Intervals [place] Rate: 108 P: 0 CT: 0 QRS: 39 QRSD: 99 T: 57 QT: 349 QTc: 469 Interpretive Statements ATRIAL FIBRILLATION WITH RAPID VENTRICULAR RESPONSE Compared to ECG 12/25/2022 19:06:01 No significant changes Electronically Signed On 12-25-2022 22:47:[address] FORMS by Carlos A Alexander M.D. [id number]
[2022-12-25 21:02] LABS: Troponin(5th) Baseline 15 ng/L (0-15)
--- NOTE | 2022-12-25 21:14 | PM.HP ---
Providers/Chief Complaint Primary Care Provider: Alana Davila MD Chief Complaint: cough History of Present Illness Allen Prince is a 52 year old male with pmh of hypertension, hyperlipidemia , paroxysmal atrial fibrillation/flutter, on Eliquis at home diabetes mellitus x 8-9 years, h/o sleep apnea not on CPAP came in today with chief complaint of worsening shortness of breath With productive whitish sputum, going on for the last 3 to 4 days, denied any chest pain, palpitation. He was also complaining of right upper quadrant abdominal pain mostly with coughing, denied any nausea vomiting. X-ray chest:Left basilar pneumonia. EKG: A-fib with RVR Pertinent labs: WBC 4.8, H&H 16/51 PLT : 142 , serum sodium 136 serum potassium 4.6, BUN:19, SCR : 1.1 , Troponin trend: 15-14 , proBNP: 1055 Review of Systems General: Reports: 10 or more systems reviewed and unremarkable except in HPI and below Const: Denies: fever(s), chills, body aches, change in appetite or diaphoresis Card: Denies: palpitations, edema, swelling of feet/ankles, dyspnea on exertion, orthopnea or leg pain with exertion Resp: Reports: dyspnea, productive cough and wheezing; Denies: pain on inspiration GI: Reports: abdominal pain; Denies: nausea, vomiting, diarrhea or constipation : Denies: flank pain or difficulty urinating Musc: Denies: back pain, extremity pain or extremity swelling Neuro: Denies: headache(s), difficulty walking or confusion Medications/Allergies Home Medications Medication Instructions Recorded Confirmed Last Taken Type aspirin 81 mg tablet,delayed 81 mg PO DAILY@12/09/19 12/17/22 01/07/22 History release nitroglycerin 0.4 mg sublingual 0.4 mg sublingual Q5M PRN Chest 01/16/20 12/17/22 Unknown History tablet Pain omega-3 fatty acids 1,000 mg 1,000 mg PO BID@01/16/20 12/17/22 01/10/22 08:00 History capsule (Fish Oil Concentrate) zinc 50 mg tablet 100 mg PO BID 05/18/21 12/17/22 01/10/22 History clobetasol 0.05 % scalp solution 1 applic topical DAILY #50 mL 07/27/21 12/17/2222 Rx atorvastatin 40 mg tablet See Rx Instructions .Route 03/12/22 12/17/22 Unknown Rx .COMPLEX 90 days #90 tabs bumetanide 1 mg tablet 1 mg PO DAILY #90 tabs 08/03/22 12/17/22 Unknown Rx apixaban 5 mg tablet (Eliquis) See Rx Instructions .Route 09/11/22 12/17/22 Unknown Rx .COMPLEX #60 tabs canagliflozin 300 mg tablet 300 mg PO DAILY 90 days #90 tabs 09/11/22 12/17/22 Unknown Rx (Invokana) gabapentin 300 mg capsule See Rx Instructions .Route 09/11/22 12/17/22 Unknown Rx .COMPLEX #120 caps insulin glargine 100 unit/mL (3 90 unit (0.9 mL) SUBCUT BID 30 09/11/22 12/17/22 Unknown Rx mL) subcutaneous pen (Lantus days #54 mL Solostar U-100 Insulin) linaclotide 145 mcg capsule 145 mcg PO QAM 30 days #30 caps 09/11/22 12/17/22 Unknown Rx (Linzess) lisinopril 5 mg tablet 5 mg PO DAILY 90 days #90 tabs 09/11/22 12/17/22 Unknown Rx metoprolol succinate 50 mg 50 mg PO DAILY@07 #90 tabs 09/11/22 12/17/22 Unknown Rx tablet,extended release 24 hr sitagliptin phosphate 50 1 tab PO BID 90 days #180 tabs 09/11/22 12/17/22 Unknown Rx mg-metformin 1,000 mg tablet (Janumet) spironolactone 25 mg tablet 25 mg PO DAILY 90 days #90 tabs 09/11/22 12/17/22 Unknown Rx Diabetic Shoes #1 ea 09/24/22 12/17/22 Unknown Rx clindamycin phosphate 1 % topical 1 applic topical DAILY #30 grams 11/29/22 12/17/22 Unknown Rx gel ketoconazole 2 % shampoo 1 applic topical .2-3 x weekly 11/29/22 12/17/22 Unknown Rx #120 mL Allergies Allergy/AdvReac Type Severity Reaction Status Date / Time No Known Allergies Allergy Verified 12/25/22 17:35 PFSH Acute PFSH: Medical History 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 Constipation Diabetic neuropathy, painful Erectile dysfunction Hypertension 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 Low testosterone in male Mixed hyperlipidemia Obstructive sleep apnea syndrome Pain management contract signed Paroxysmal atrial fibrillation Post-void dribbling Stenosis of cervical spine with myelopathy Type 2 diabetes mellitus Surgical History H/O cataract extraction H/O esophagogastroduodenoscopy (04/21/20) gastritis and duodenitis S/P cholecystectomy Family History Mother Dementia Brother Dementia Other Heart disease Denies family history of Anesthesia complication Bleeding disorder Social History Smoking and tobacco status: heavy tobacco smoker smokeless tobacco Smokeless tobacco user: chewing tobacco Smokeless tobacco details: 1.5 CANS PER DAY Second hand smoke exposure: No Alcohol intake: never Marital status: Current occupational status: employed Current occupation: [employer] History of recent travel: No Vitals/I&O/Wt Last Vital Signs Temp 97.7 F 12/25/22 17:29 Pulse 102 H 12/25/22 20:19 Resp 22 H 12/25/22 20:19 BP 131/83 12/25/22 20:19 Pulse Ox 92 12/25/22 20:19 O2 Del Method 12/25/22 20:19 O2 Flow Rate 3 12/25/22 20:19 12/25/22 12/25/22 12/25/22 06:59 14:59 22:59 Intake Total 58.250 / 58.250 Balance 58.250 / 58.250 Weight last 48 hrs Weight 158.757 kg Physical Exam Const: COMMON NORMALS: patient oriented x3 HENMT: COMMON NORMALS: normocephalic and atraumatic HEAD & SCALP: normocephalic and atraumatic Resp: OTHER: Diminished air entry bilaterally, minimal expiratory wheezing bilateral Cardio: COMMON NORMALS: No murmurs present (Cardio) and Peripheral pulses 2+ throughout PERIPHERAL PULSES: Peripheral pulses 2+ throughout OTHER: Irregularly irregular rhythm, S1-S2 variable intensity GI: COMMON NORMALS: Normal to inspection, nondistended, normoactive bowel sounds present AUSCULTATION: Yes normoactive bowel sounds PALPATION: Yes No hepatosplenomegaly present RECTAL EXAM: Yes deferred OTHER: Right upper quadrant tenderness present Extremity: COMMON NORMALS: no clubbing, cyanosis or edema and no pedal edema Neuro: COMMON NORMALS: patient oriented x3 Data 12/25/22 19:15 12/25/22 19:15 Micro: Microbiology 12/25/22 19:47 Blood Culture - Preliminary Blood SPECIMEN COLLECTED 12/25/22 19:15 Blood Culture - Preliminary Blood SPECIMEN COLLECTED A&P Assessment and plan (1) Community acquired pneumonia: Qualifiers: Laterality: left Lung location: lower lobe of lung Qualified Code(s): J18.9 - Pneumonia, unspecified organism (2) PAD (peripheral artery disease): (3) CHF (congestive heart failure), NYHA class III: Qualifiers: Congestive heart failure chronicity: acute Congestive heart failure type: diastolic Qualified Code(s): I50.31 - Acute diastolic (congestive) heart failure (4) Paroxysmal atrial fibrillation: (5) Type 2 diabetes mellitus: Qualifiers: Diabetes mellitus complication detail: with other skin complication Diabetes mellitus complication status: with skin complications Diabetes mellitus 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 Qualified Code(s): E11.628 - Type 2 diabetes mellitus with other skin complications; Z79.4 - 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 He was also complaining of right upper quadrant abdominal pain mostly with coughing, denied any nausea vomiting. Assessment: A-fib with RVR: Possibly precipitated by pneumonia. EKG: A-fib with RVR 2D Echo : Patient is currently on Cardizem drip Received metoprolol tartrate 100 mg p.o. one-time dose, started back on metoprolol tartrate 50 p.o. daily On Eliquis for anticoagulation Continue telemetry monitoring CAP: X-ray chest:Left basilar pneumonia. Currently requiring 3 L supplemental oxygen, do not use oxygen at home Follow blood culture urine culture sputum Gram stain and culture, urine Legionella antigen, bacterial antigen panel,MRSA PCR MurrayDelphinemitchell Briseida Avina On ceftriaxone azithromycin Abdominal pain: Patient is complaining of right upper quadrant abdominal pain predominantly with coughing. If abdominal pain persist will need further imaging studies Lipase normal, LFTs normal. History of diabetes: On Lantus sliding scale insulin, Monitor fingerstick glucose CODE STATUS: Full code DVT prophylaxis: Not needed on Eliquis Attestations Medical Necessity Statement*: Patient is in hospital for management of pneumonia A-fib with RVR. Anticipated length of stay greater than 2 midnightS. Time Spent in Patient Care: Greater than 35 minutes (>than 50% of time spent in counselling and/or direct pt care on unit). Coding Level of Care Code 08687 Diagnoses Community acquired pneumonia J18.9 Laterality: left Lung location: lower lobe of lung PAD (peripheral artery disease) I73.9 CHF (congestive heart failure), NYHA class III I50.31 Congestive heart failure chronicity: acute Congestive heart failure type: diastolic Paroxysmal atrial fibrillation I48.0 Type 2 diabetes mellitus E11.628; Z79.4 Diabetes mellitus complication detail: with other skin complication Diabetes mellitus complication status: with skin complications Diabetes mellitus group home insulin use: with group home use Hypertension I10 Hypertension type: essential hypertension Atrial fibrillation with RVR I48.91 Hypoxia R09.02
--- NOTE | 2022-12-25 21:15 | PC.NURSE ---
Report to CSU attempted @ 2114; was told CSU nurse would call back to get report
[2022-12-25 21:22] LABS: Troponin 5 2HR 14.43 ng/L (0-15)
[2022-12-25 21:31] LABS: Troponin 5 2HR Delta -0.57 ABS# (0-10)
[2022-12-25] MEDS: benzonatate 100 mg Capsule 200 MG PO (21:46)
[2022-12-25] MEDS: metoprolol tartrate 50 mg Tablet 100 MG PO (21:47)
[2022-12-25] MEDS: acetaminophen 325 mg Tablet 650 MG PO (22:44)
--- NOTE | 2022-12-25 23:12 | USCV_ITS ---
Allen Prince Age: 52 Gender: M : 1970 Exam Date: 12/25/2022 23:55 Ordering Phys: Ashok Ricardo MD Technologist: CARMEN Exam Location: [facility] [place] Indication: chronic atrial fibrillation on Eloquist, IDDM, history CHF, c/o shortness of breath. BP: 139 / 93 HR: 65 Rhythm: Atrial fibrillation Technical Quality: Poor because of body habitus with [employer]ISON MEASUREMENTS (Male / Female) Normal Values 2D ECHO LV Diastolic Diameter PLAX 3.7 cm 4.2 - 5.9 / 3.9 - 5.3 cm LV Systolic Diameter PLAX 2.4 cm IVS Diastolic Thickness 1.9 cm 0.6 - 1.0 / 0.6 - 0.9 cm IVS Systolic Thickness 2.5 cm LVPW Diastolic Thickness 1.5 cm 0.6 - 1.0 / 0.6 - 0.9 cm LVPW Systolic Thickness 2.2 cm LVOT Diameter 2.6 cm LV Ejection Fraction 2D Teich 63.2 % LV Ejection Fraction MOD 2C 63.9 % LV Ejection Fraction 2C AL 64.0 % LA Diameter 5.5 cm LA Width 5.0 cm LA Height 6.8 cm RA Width 4.2 cm RA Height 5.7 cm Aorta at Sinotubular Diameter 3.2 cm IVC Diameter 2.4 cm M-MODE Aortic Annulus Diameter 3.6 cm LA Ao Ratio MM 1.4 MV E Point Septal Separation 1.0 cm DOPPLER AV Peak Velocity 85.0 cm/s LVOT Peak Velocity 76.0 cm/s AV Area Cont Eq vti 4.8 cm squared AV Area Cont Eq pk 4.8 cm squared MV Area PHT 4.1 cm squared Mitral E to A Ratio 187.8 MV E' Velocity 94.0 cm/s TR Peak Velocity 236.0 cm/s TR Peak Gradient 22.3 mmHg TV Peak E Velocity 35.0 cm/s Right Atrial Pressure 15.0 mmHg Pulmonary Artery Systolic Pressu 37.3 mmHg PV Peak Velocity 79.0 cm/s RV Acceleration Time 0.1 s RV Ejection Time 0.3 s RV AcT/ET 0.2 FINDINGS Left Ventricle Normal left ventricular size, systolic function and wall thickness, with no regional wall motion abnormalities. Left ventricular ejection fraction is estimated at 60 %. Abnormal septal motion consistent with conduction abnormality. Rhythm precludes evaluation of diastolic function. Right Ventricle Normal right ventricular size and systolic function. Right ventricular systolic pressure 37.3 mmHg. Right Atrium Normal right atrial size. Left Atrium Mildly increased left atrial size. Mitral Valve Structurally normal mitral valve. No mitral valve stenosis. Trace mitral valve regurgitation. Aortic Valve Structurally normal trileaflet aortic valve. No aortic valve stenosis. No aortic valve regurgitation. Tricuspid Valve Structurally normal tricuspid valve. Trace to mild tricuspid valve regurgitation. Pulmonic Valve Pulmonic valve not well visualized. Pericardium No pericardial effusion. Aorta Normal size aortic root and proximal ascending aorta. IVC Dilated IVC with decreased respiratory variation. CONCLUSIONS 1. Normal left ventricular size, systolic function and wall thickness, with no regional wall motion abnormalities. Left ventricular ejection fraction is estimated at 60 %. Abnormal septal motion consistent with conduction abnormality. 2. Normal right ventricular size and systolic function. 3. Trace to mild tricuspid valve regurgitation. 4. When compared to study dated 04/14/2019, there may not have been any significant change. Priscila Anderson MD (Electronically Signed) Final Date: 26 December 2022 12:50 S
[2022-12-26] VITALS (24 sets, daily range): BP systolic 116–157; BP diastolic 67–97; PULSE 79–101; RESP 12–24; TEMP 36.4–37.1; O2SAT 87–96
[2022-12-26 01:40] LABS: Basophils % 0.7 %; Eosinophils # 0.1 10^3/uL (0.0-0.8); Eosinophils % 1.1 %; Hematocrit 46.8 % (42.0-52.0); Hemoglobin 15.1 g/dL (11.7-16.6); Lymphocytes # 1.8 10^3/uL (0.8-4.8); Lymphocytes % 31.3 %; Mean Corpuscular HGB Conc 32.3 g/dL (30.0-36.0); Mean Corpuscular Hemoglobin 28.1 pg (28.0-34.0); Mean Platelet Volume 10.8 fL (7.4-10.4); Monocytes # 0.7 10^3/uL (0.2-0.9); Monocytes % 11.7 %; Neutrophils # 3.08 10^3/uL (1.8-7.7); Neutrophils % 54.7 %; Nucleated Red Blood Cells % 0 %; Platelet Count 141 10^3/cmm (130-400); Red Blood Count 5.38 10^6/uL (4.1-5.3); Red Cell Distribution Width 14.7 % (12.1-15.1); White Blood Count 5.6 10^3/uL (4.0-10.0)
[2022-12-26 01:57] LABS: Troponin 5 6HR 16.83 ng/L (0-15)
[2022-12-26 02:00] LABS: Alanine Aminotransferase 11 U/L (0-41); Alkaline Phosphatase 103 U/L (40-130); Anion Gap 17.1 (5-19); Aspartate Amino Transferase 15 U/L (0-40); Blood Urea Nitrogen 22 mg/dL (6-20); Calcium 8.2 mg/dL (8.5-10.5); Carbon Dioxide 25 mmol/L (22-29); Chloride 95 mmol/L (98-107); Globulin 3.5 g/dL (1.3-4.6); Glomerular Filtration Rate 57.7 mL/min (90-130); Glucose 362 mg/dL (65-115); Magnesium 1.9 mg/dL (1.7-2.3); Osmolality Calculated 294 mOsm/kg (285-295); Potassium 4.1 mmol/L (3.5-5.1); Sodium 133 mmol/L (136-145); Total Bilirubin 0.4 mg/dL (0.15-1.2); Total Protein 6.5 g/dL (6.6-8.7)
[2022-12-26 02:04] LABS: Procalcitonin 0.09 ng/mL (0-0.5)
[2022-12-26 02:15] LABS: Troponin 5 6HR Delta 1.83 ng/L (0-12)
--- NOTE | 2022-12-26 06:10 | PC.NURSE ---
Spoke with regarding patients blood glucose of 337, Dr Ricardo wants dose of lantus to be given now. Called pharmacy for them to send lantus dose.
[2022-12-26] MEDS: perflutren protein-a microsphr 0.22 mg/mL SDV 3 mL IV (06:14)
[2022-12-26 06:20] LABS: Glucose Point of Care 337 mg/dL (70-110)
[2022-12-26] MEDS: metoprolol succinate ER (24 HR) 50 mg Tablet PO (06:29)
[2022-12-26] MEDS: aspirin 81 mg EC Tablet PO (06:29)
[2022-12-26] MEDS: azithromycin 500 MG in sodium chloride 0.9% 250 ML 250 MG IV (06:29)
[2022-12-26] MEDS: insulin glargine 100 units/1 mL 30 UNIT SUBCUT (06:30)
[2022-12-26] MEDS: acetaminophen 325 mg Tablet 650 MG PO (06:36)
[2022-12-26] MEDS: levalbuterol 0.63 mg/3 mL Neb INHALATION ×4 (07:55→20:01)
[2022-12-26] MEDS: ipratropium 0.5 mg/2.5 mL Neb INHALATION ×4 (07:55→20:01)
[2022-12-26] MEDS: insulin lispro 100 unit/1 mL SUBCUT ×4 (08:02→21:56)
[2022-12-26] MEDS: benzonatate 100 mg Capsule 200 MG PO ×3 (08:47→21:01)
[2022-12-26] MEDS: spironolactone 25 mg Tablet PO (08:47)
[2022-12-26] MEDS: atorvastatin 40 mg Tablet PO (08:47)
[2022-12-26] MEDS: apixaban 5 mg Tablet PO ×2 (08:48→21:01)
[2022-12-26] MEDS: bumetanide 1 mg Tablet PO (08:48)
[2022-12-26] MEDS: lisinopril 5 mg Tablet PO (08:48)
--- NOTE | 2022-12-26 10:11 | P.PN_ITS ---
Subjective Subjective: Patient was seen today, heart rate in 80s Patient is eating breakfast No active chest pain or shortness of breath Afebrile Patient is afebrile, white count 5.6, sodium 133, creatinine 1.3 Vitals/I&O/Wt Last Vital Signs Temp 97.6 F 12/26/22 07:16 Pulse 88 12/26/22 07:58 Resp 16 12/26/22 07:58 BP 144/92 12/26/22 07:16 Pulse Ox 92 12/26/22 07:58 O2 Del Method 12/26/22 07:58 O2 Flow Rate 4 12/26/22 07:58 12/25/22 12/26/22 12/26/22 22:59 06:59 14:59 Intake Total 84.250 / 84.250 204.417 / 288.667 490 / 490 Balance 84.250 / 84.250 204.417 / 288.667 490 / 490 Weight last 48 hrs Weight 161.025 kg Weight 161.434 kg Weight 158.757 kg Physical Exam Narrative: Patient is eating breakfast No audible stridor or wheezing Currently on 2 L No signs of edema Abdomen distended S1, S2 bradycardia with heart rate in 80s Hemodynamically stable Pleasant and cooperative Nonfocal neuro exam Data 12/26/22 01:06 12/26/22 01:06 Micro: Microbiology 12/25/22 22:40 Gram Stain - Final Sputum - Expectorated Sputum 12/25/22 19:47 Blood Culture - Preliminary Blood SPECIMEN COLLECTED 12/25/22 19:15 Blood Culture - Preliminary Blood SPECIMEN COLLECTED A&P Assessment and plan (1) Hypoxia: (2) Atrial fibrillation with RVR: (3) Chronic atrial fibrillation with rapid ventricular response: (4) Community acquired pneumonia: Qualifiers: Laterality: left Lung location: lower lobe of lung Qualified Code(s): J18.9 - Pneumonia, unspecified organism (5) PAD (peripheral artery disease): (6) Peripheral neuropathy: (7) Type 2 diabetes mellitus: Qualifiers: Diabetes mellitus intermediate insulin use: with intermediate use Diabetes mellitus complication status: with skin complications Diabetes mellitus complication detail: with other skin complication Qualified Code(s): E11.628 - Type 2 diabetes mellitus with other skin complications; Z79.4 - group home (current) use of insulin (8) Hypertension: Qualifiers: Hypertension type: essential hypertension Qualified Code(s): I10 - Essential (primary) hypertension (9) BOBBI (acute kidney injury): Plan Hypoxia related to community-acquired pneumonia Wean off oxygen from 4 L to 2 L Continue antibiotics I did tell him that azithromycin might give him diarrhea, will switch to p.o. regimen instead of IV A-fib without RVR Continue metoprolol Cardizem drip turned off Diastolic CHF mild exacerbation with trace edema with mild exacerbation continue Bumex BOBBI related to cardiorenal syndrome anticipating from overdiuresis Type 2 diabetes with neuropathy: Consistent carb diet with insulin regimen DVT prophylaxis covered due to Eliquis use Hypertension: Continue lisinopril and spironolactone Attestations Medical Necessity Statement*: Tomorrow if clinically stable Coding Level of Care Code 82391 Diagnoses Hypoxia R09.02 Atrial fibrillation with RVR I48.91 Chronic atrial fibrillation with rapid ventricular response I48.20 Community acquired pneumonia J18.9 Laterality: left Lung location: lower lobe of lung PAD (peripheral artery disease) I73.9 Peripheral neuropathy G62.9 Type 2 diabetes mellitus E11.628; Z79.4 Diabetes mellitus intermediate insulin use: with intermediate use Diabetes mellitus complication status: with skin complications Diabetes mellitus complication detail: with other skin complication Hypertension I10 Hypertension type: essential hypertension BOBBI (acute kidney injury) N17.9
[2022-12-26 11:13] LABS: Bilirubin Urine Neg (Negative); Blood Urine 3+ (Negative); Glucose Urine UA 4+ (Normal); Ketones Urine 1+ (Negative); Leukocyte Esterase Urine Negative (Negative); Nitrate Urine Negative (Negative); Protein Urine 2+ (Negative); Urine Appearance Clear (CLEAR); Urine Color Dark Yellow (Yellow); Urobilinogen Urine Neg (Negative); pH Urine 5 (5-7)
[2022-12-26 11:16] LABS: Bacteria Urine TRACE /hpf; Squamous Epithelial Cell Urine 0-4 /hpf (0-5); WBC Urine RARE /hpf (0-5)
[2022-12-26 11:17] LABS: Add Urine Culture? No; Amorphous Sediment Urine 2+ /hpf
[2022-12-26 11:36] LABS: Glucose Point of Care 367 mg/dL (70-110)
[2022-12-26] MEDS: amlodipine 10 mg Tablet PO (11:57)
[2022-12-26] MEDS: metoprolol tartrate 50 mg Tablet PO ×2 (16:19→21:01)
[2022-12-26 17:17] LABS: Glucose Point of Care 360 mg/dL (70-110)
[2022-12-26] MEDS: doxycycline 100 mg Tablet PO (17:54)
[2022-12-26] MEDS: hyDRALAzine 10 mg Tablet PO (21:01)
[2022-12-26] MEDS: cefTRIAXone 1,000 MG in sodium chloride 0.9% (plus) 50 ML 100 MG IV (21:02)
[2022-12-26 21:50] LABS: Glucose Point of Care 341 mg/dL (70-110)
[2022-12-27] VITALS (16 sets, daily range): BP systolic 116–154; BP diastolic 74–97; PULSE 69–92; RESP 10–22; TEMP 36.6; O2SAT 90–96
[2022-12-27 02:21] LABS: Hematocrit 45.8 % (42.0-52.0); Hemoglobin 14.3 g/dL (11.7-16.6); Mean Corpuscular HGB Conc 31.2 g/dL (30.0-36.0); Mean Corpuscular Hemoglobin 26.9 pg (28.0-34.0); Mean Corpuscular Volume 86.1 fl (80-94); Mean Platelet Volume 10.1 fL (7.4-10.4); Platelet Count 145 10^3/cmm (130-400); Red Blood Count 5.32 10^6/uL (4.1-5.3); Red Cell Distribution Width 14.6 % (12.1-15.1); White Blood Count 5.7 10^3/uL (4.0-10.0)
[2022-12-27 02:51] LABS: Alanine Aminotransferase 10 U/L (0-41); Albumin Level 2.9 g/dL (3.5-5.2); Alkaline Phosphatase 94 U/L (40-130); Anion Gap 11.7 (5-19); Aspartate Amino Transferase 14 U/L (0-40); Blood Urea Nitrogen 28 mg/dL (6-20); Calcium 8.5 mg/dL (8.5-10.5); Carbon Dioxide 30 mmol/L (22-29); Chloride 97 mmol/L (98-107); Globulin 3.3 g/dL (1.3-4.6); Glomerular Filtration Rate 78.2 mL/min (90-130); Glucose 331 mg/dL (65-115); Osmolality Calculated 298 mOsm/kg (285-295); Potassium 3.7 mmol/L (3.5-5.1); Sodium 135 mmol/L (136-145); Total Bilirubin 0.2 mg/dL (0.15-1.2); Total Protein 6.2 g/dL (6.6-8.7)
[2022-12-27 03:44] LABS: Absolute Eosinophils 0.2 10^3/cmm (0.0-0.7); Eosinophils 4 %; Lymphocytes 30 %; Monocytes Absolute 0.2 10^3/cmm (0.1-0.6); Segmented Neutrophils 53 %; Total Cells Counted 100 (0-100)
[2022-12-27 03:45] LABS: Lymphocytes Absolute 2.2 10^3/cmm (1.2-3.4); Platelet Estimate Normal (Normal)
[2022-12-27 06:19] LABS: Glucose Point of Care 314 mg/dL (70-110)
[2022-12-27] MEDS: aspirin 81 mg EC Tablet PO (06:29)
[2022-12-27] MEDS: ipratropium 0.5 mg/2.5 mL Neb INHALATION (08:37)
[2022-12-27] MEDS: levalbuterol 0.63 mg/3 mL Neb INHALATION (08:37)
[2022-12-27] MEDS: atorvastatin 40 mg Tablet PO (09:45)
[2022-12-27] MEDS: hyDRALAzine 10 mg Tablet PO (09:45)
[2022-12-27] MEDS: amlodipine 10 mg Tablet PO (09:46)
[2022-12-27] MEDS: doxycycline 100 mg Tablet PO (09:46)
[2022-12-27] MEDS: apixaban 5 mg Tablet PO (09:46)
[2022-12-27] MEDS: bumetanide 1 mg Tablet PO (09:46)
[2022-12-27] MEDS: benzonatate 100 mg Capsule 200 MG PO (09:47)
[2022-12-27] MEDS: metoprolol tartrate 50 mg Tablet PO (09:48)
[2022-12-27] MEDS: insulin lispro 100 unit/1 mL SUBCUT (09:49)
--- NOTE | 2022-12-27 09:58 | PM.DCS ---
Discharge Providers Date of Admission: 12/25/22 20:26 Date of Discharge: December 27, 2022 Attending Provider at Admission: Ashok Ricardo MD Attending Provider at Discharge: Maricruz Dial MD Primary Care Provider: Alana Davila MD Diagnoses at Discharge Discharge Diagnosis (1) Hypoxia: Status: Acute (2) Atrial fibrillation with RVR: Status: Acute (3) Chronic atrial fibrillation with rapid ventricular response: Status: Acute (4) Community acquired pneumonia: Status: Acute Qualifiers: Laterality: left Lung location: lower lobe of lung Qualified Code(s): J18.9 - Pneumonia, unspecified organism (5) PAD (peripheral artery disease): Status: Acute (6) Peripheral neuropathy: Status: Acute (7) Type 2 diabetes mellitus: Status: Chronic Qualifiers: Diabetes mellitus unemployment specialist insulin use: with unemployment specialist use Diabetes mellitus complication status: with skin complications Diabetes mellitus complication detail: with other skin complication Qualified Code(s): E11.628 - Type 2 diabetes mellitus with other skin complications; 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 (8) Hypertension: Status: Chronic Qualifiers: Hypertension type: essential hypertension Qualified Code(s): I10 - Essential (primary) hypertension (9) BOBBI (acute kidney injury): Status: Acute Reason for Visit Reason for Visit: cough Hospital Course Hospital Course 52-year-old male who was admitted for management evaluation of community-acquired pneumonia with A-fib RVR, he carries history of chronic A-fib, on anticoagulation with Eliquis, history of hypertension, diabetes, diastolic CHF, his echo showed 60% EF, he resumed his home dose of Bumex, patient did well with ceftriaxone and azithromycin initially which was transitioned to ceftriaxone and doxycycline the next day, he is experiencing right-sided pleuritic chest pain related to his pneumonia, he remained afebrile, he will be discharged home after home oxygen evaluation, requiring 2 L at rest however O2 saturation remains above 94% on room air on the day of discharge. We will give him Levaquin antibiotic at the time of discharge, I have discontinued his metoprolol succinate and transition to Metroprolol tartrate 50 mg twice a day and asked him to increase it to 100 mg twice a day if he notices his heart rate remains above 110 on current regimen, patient understands all instructions and directions. Cultures remain negative to date Physical Exam Narrative: Awake and alert No audible stridor or wheezing Euvolemic Abdomen soft S1, S2 variable Nonfocal neuro exam GCS 15 Discharge Data Studies Completed and Pending Completed Studies During Hospitalization Category Date Time Status XR chest 1V portable [id number] Urgent Exams 12/25/22 18:57 Completed CV. echo wo/w contrast [id number] Routine Ultrasound 12/25/22 23:12 Completed Pending at discharge Category Date Time Status Blood Culture Stat Lab 12/25/22 19:47 Results Complete Blood Count w/Auto AM LABS Lab 12/28/22 04:00 Ordered Comprehensive Metabolic Panel AM LABS Lab 12/28/22 04:00 Ordered Sputum Culture and Gram Stain Routine Lab 12/25/22 22:40 Results Streptococcus Culture Group A Stat Lab 12/25/22 19:16 Received Radiology Impressions Chest X-Ray 12/25/22 18:57 IMPRESSION: Left basilar pneumonia. Laboratory Results WBC 5.7 10^3/uL (4.0-10.0) 12/27/22 01:48 RBC 5.32 10^6/uL (4.1-5.3) H 12/27/22 01:48 Hgb 14.3 g/dL (11.7-16.6) 12/27/22 01:48 Hct 45.8 % (42.0-52.0) 12/27/22 01:48 MCV 86.1 fl (80-94) 12/27/22 01:48 MCH 26.9 pg (28.0-34.0) L 12/27/22 01:48 MCHC 31.2 g/dL (30.0-36.0) 12/27/22 01:48 RDW 14.6 % (12.1-15.1) 12/27/22 01:48 Plt Count 145 10^3/cmm (130-400) 12/27/22 01:48 MPV 10.1 fL (7.4-10.4) 12/27/22 01:48 Neut % (Auto) 54.7 % 12/26/22 01:06 Lymph % (Auto) Not Reportable 12/27/22 01:48 [place]ine % (Auto) Not Reportable 12/27/22 01:48 Eos % (Auto) 1.1 % 12/26/22 01:06 Baso % (Auto) 0.7 % 12/26/22 01:06 Neut # (Auto) 3.08 10^3/uL (1.8-7.7) 12/26/22 01:06 Lymph # (Auto) Not Reportable 12/27/22 01:48 [place] # (Auto) Not Reportable 12/27/22 01:48 Eos # (Auto) 0.1 10^3/uL (0.0-0.8) 12/26/22 01:06 Baso # (Auto) 0.0 10^3/uL (0.0-0.1) 12/26/22 01:06 Nucleated RBC % (auto) 0 % 12/26/22 01:06 Total Counted 100 (0-100) 12/27/22 01:48 Atypical Lymphs % 9.0 % (0-5) H 12/27/22 01:48 Segmented Neutrophils 53 % 12/27/22 01:48 Abs Segm Neuts (Man) 3.0 10/cmm (1.6-7.1) 12/27/22 01:48 Band Neutrophils Not Reportable 12/27/22 01:48 Absolute Lymphocytes 2.2 10^3/cmm (1.2-3.4) 12/27/22 01:48 Lymphocytes (Manual) 30 % 12/27/22 01:48 Monocytes (Manual) 4.0 % 12/27/22 01:48 Absolute Monocytes 0.2 10^3/cmm (0.1-0.6) 12/27/22 01:48 Eosinophils (Manual) 4 % 12/27/22 01:48 Absolute Eosinophils 0.2 10^3/cmm (0.0-0.7) 12/27/22 01:48 Basophils (Manual) Not Reportable 12/27/22 01:48 Nucleated RBCs # 0.0 /100WBC 12/26/22 01:06 Platelet Estimate Normal (Normal) 12/27/22 01:48 APTT 26.7 SECONDS (23.9-36.7) 12/25/22 19:15 Sodium 135 mmol/L (136-145) L 12/27/22 01:48 Potassium 3.7 mmol/L (3.5-5.1) 12/27/22 01:48 Chloride 97 mmol/L (98-107) L 12/27/22 01:48 Carbon Dioxide 30 mmol/L (22-29) H 12/27/22 01:48 Anion Gap 11.7 (5-19) 12/27/22 01:48 BUN 28 mg/dL (6-20) H 12/27/22 01:48 Creatinine 1.0 mg/dL (0.7-1.2) 12/27/22 01:48 GFR Calculation 78.2 mL/min (90-130) L 12/27/22 01:48 Glucose 331 mg/dL (65-115) H 12/27/22 01:48 POC Glucose 314 mg/dL (70-110) H 12/27/22 06:14 Calculated Osmolality 298 mOsm/kg (285-295) H 12/27/22 01:48 Lactic Acid 1.5 mmol/L (0.5-2.2) 12/25/22 19:15 Calcium 8.5 mg/dL (8.5-10.5) 12/27/22 01:48 Magnesium 1.9 mg/dL (1.7-2.3) 12/26/22 01:06 Total Bilirubin 0.2 mg/dL (0.15-1.2) 12/27/22 01:48 AST 14 U/L (0-40) 12/27/22 01:48 ALT 10 U/L (0-41) 12/27/22 01:48 Alkaline Phosphatase 94 U/L (40-130) 12/27/22 01:48 Troponin T Baseline 15 ng/L (0-15) 12/25/22 19:14 Troponin T 120 Minute 14.43 ng/L (0-15) 12/25/22 20:50 Delta Troponin T -0.57 ABS# (0-10) L 12/25/22 20:50 Troponin T Hi Sens 6Hr 16.83 ng/L (0-15) H 12/26/22 01:06 Troponin T Hi Sens 6Hr Delta 1.83 ng/L (0-12) 12/26/22 01:06 NT-Pro-B Natriuret Pep 1055 pg/mL (0-125) H 12/25/22 19:15 Total Protein 6.2 g/dL (6.6-8.7) L 12/27/22 01:48 Albumin 2.9 g/dL (3.5-5.2) L 12/27/22 01:48 Globulin 3.3 g/dL (1.3-4.6) 12/27/22 01:48 Lipase 21 U/L (13-60) 12/25/22 19:15 Procalcitonin 0.09 ng/mL (0-0.5) 12/26/22 01:06 Urine Color Dark yellow (Yellow) 12/26/22 10:40 Urine Appearance Clear (CLEAR) 12/26/22 10:40 Urine pH 5 (5-7) 12/26/22 10:40 Ur Specific [place] 1.020 (1.005-1.030) 12/26/22 10:40 Urine Protein 2+ (Negative) H 12/26/22 10:40 Urine Glucose (UA) 4+ (Normal) H 12/26/22 10:40 Urine Ketones 1+ (Negative) H 12/26/22 10:40 Urine Blood 3+ (Negative) H 12/26/22 10:40 Urine Nitrate Negative (Negative) 12/26/22 10:40 Urine Bilirubin Neg (Negative) 12/26/22 10:40 Urine Urobilinogen Neg mg/dL (Negative) 12/26/22 10:40 Ur Leukocyte Esterase Negative (Negative) 12/26/22 10:40 Urine RBC 5-10 /hpf (0-2) H 12/26/22 10:40 Urine WBC Rare /hpf (0-5) 12/26/22 10:40 Ur Squamous Epith Cells 0-4 /hpf (0-5) H 12/26/22 10:40 Amorphous Sediment 2+ /hpf 12/26/22 10:40 Urine Bacteria Trace /hpf (NONE) 12/26/22 10:40 Hyaline Casts 5-10 /lpf H 12/26/22 10:40 Influenza Type A Ag negative (Negative) 12/25/22 19:16 Influenza Type B Ag negative (Negative) 12/25/22 19:16 SARS-CoV-2 Ag (Rapid) negative (Negative) 12/25/22 19:16 Group A Strep Rapid Negative (Negative) 12/25/22 19:16 Vitals Last Vital Signs Temp 98 F 12/27/22 03:36 Pulse 92 12/27/22 08:00 Resp 16 12/27/22 08:00 BP 154/97 12/27/22 07:13 Pulse Ox 91 12/27/22 08:00 O2 Del Method 12/27/22 08:00 O2 Flow Rate 2 12/27/22 04:32 Discharge Plan Discharge Patient Disposition: Home Condition: Stable Prescriptions: New levofloxacin 750 mg tablet 750 mg PO DAILY 7 Days Qty: 7 0RF lidocaine HCl 4 % adhesive patch,medicated 1 patch topical DAILY PRN (Reason: pain) Qty: 10 0RF Rx Instructions: may leave on for up to 12 hrs metoprolol tartrate 50 mg Tablet 50 mg PO BID@0900,2100 Qty: 120 3RF Continued aspirin 81 mg tablet,delayed release (DR/EC) 81 mg PO DAILY@07 ketoconazole 2 % shampoo 1 applic topical .2-3 x weekly Qty: 120 6RF Rx Instructions: Allowed to sit 5 minutes on scalp before rinsing Linzess 145 mcg capsule 145 mcg PO QAM 30 Days Qty: 30 5RF Janumet 50-1,000 mg tablet 1 tab PO BID 90 Days Qty: 180 1RF spironolactone 25 mg tablet 25 mg PO DAILY 90 Days Qty: 90 1RF (DME) Diabetic Shoes See Rx Instructions .Route .MEDSUPPLY Qty: 1 0RF Rx Instructions: As directed atorvastatin 40 mg tablet 40 mg PO BEDTIME clindamycin phosphate 1 % gel 1 applic topical DAILY PRN (Reason: active flares) Rx Instructions: Apply to scalp as needed for active flares Eliquis 5 mg tablet 5 mg PO BID Fish Oil Concentrate 1,000 mg Capsule 1,000 mg PO BID Nitrostat 0.4 mg Tablet, Sublingual 0.4 mg SUBLINGUAL Q5M PRN (Reason: Chest Pain) Rx Instructions: do not exceed 3 doses per episode lisinopril 5 mg tablet 5 mg PO BEDTIME Lantus Solostar U-100 Insulin 100 unit/mL (3 mL) insulin pen 80 - 85 unit SUBCUT BID gabapentin 300 mg capsule 600 mg PO BID bumetanide 1 mg tablet 1 mg PO QAM clobetasol 0.05 % solution 1 applic topical DAILY PRN (Reason: unknown) Rx Instructions: to scalp Invokana 300 mg tablet 300 mg PO QAM Discontinued metoprolol succinate 50 mg tablet extended release 24 hr 50 mg PO DAILY@07 Qty: 90 2RF Discharge Orders: Discharge Order (Routine); Ordered 12/27/22 Ordered By: Maricruz Dial Referrals: Alana Davila MD [Primary Care Provider] - 01/02/23 8:30 am ([facility] has scheduled an appointment with Dr. Davila on 01/02/2023 at 8:30. If you have any questions please [phone].) Patient Instructions: Levofloxacin (By mouth) (Levaquin, Levaquin Leva-michael), Metoprolol (By injection), A-fib (Atrial Fibrillation) (DC), Acute Kidney Injury (DC), Abdominal Pain (ED), Hypoxia (GEN), Opioid Safety Discharge Attestations Time Spent in Discharge Care*: less than 30 min Quality Metrics Clinical Quality Measures [ No reported AMI, CVA or VTE this stay] Coding Level of Care Code Acute Code for Chg Fwd Diagnoses Hypoxia R09.02 Atrial fibrillation with RVR I48.91 Chronic atrial fibrillation with rapid ventricular response I48.20 Community acquired pneumonia J18.9 Laterality: left Lung location: lower lobe of lung PAD (peripheral artery disease) I73.9 Peripheral neuropathy G62.9 Type 2 diabetes mellitus E11.628; Z79.4 Diabetes mellitus longterm insulin use: with longterm use Diabetes mellitus complication status: with skin complications Diabetes mellitus complication detail: with other skin complication Hypertension I10 Hypertension type: essential hypertension BOBBI (acute kidney injury) N17.9
[2022-12-27] MEDS: insulin glargine 100 units/1 mL 30 UNIT SUBCUT (10:09)
--- NOTE | 2022-12-27 10:55 | PC.NURSE ---
Pt discharged home. Pts IV removed no redness or swelling noted. Pt tolerated well. Pts discharge instructions given along with prescriptions and follow up appointments. Pt verbalized understanding. Pt had no c/o pain or discomfort at the time of discharge. Pt transferred out to private vehicle via wheelchair accompanied by staff.
== END 2022-12-27 10:55 | disposition home or self-care (01) ==
LOC: ER 20:29 → CSU 22:05
PROVIDERS: Admitting Provider Internal Medicine; Emergency Provider Family Medicine; PCP Family Medicine; Visit Provider Internal Medicine
DX: R09.02 Hypoxemia (principal); I48.91 Unspecified atrial fibrillation; I48.20 Chronic atrial fibrillation, unspecified; J18.9 Pneumonia, unspecified organism; I73.9 Peripheral vascular disease, unspecified; G62.9 Polyneuropathy, unspecified; E11.628 Type 2 diabetes mellitus with other skin complications; Z79.4 Long term (current) use of insulin; N17.9 Acute kidney failure, unspecified; Z79.01 Long term (current) use of anticoagulants; I11.0 Hypertensive heart disease with heart failure; I50.32 Chronic diastolic (congestive) heart failure; Z79.82 Long term (current) use of aspirin; Z79.891 Long term (current) use of opiate analgesic; E78.2 Mixed hyperlipidemia; E11.42 Type 2 diabetes mellitus with diabetic polyneuropathy
CPT/HCPCS: 36415; 36416; 71045; 80053; 81001; 82962; 83605; 83690; 83735; 83880; 84145; 84484; 85007; 85025; 85730; 86403; 87040; 87070; 87081; 87205; 87426; 87449; 87641; 87804; 87880; 93005; 93306; 94640; 94760; 96365; 96366; 96367; 96372; 96375; 99285; C8929; G0378; J0456; J0696; J1815; J3490; J7050; J7614; J7644; Q0144; Q9956

== ENCOUNTER → 2023-01-02 09:06 | Outpatient (BNVA) | payer MEDICARE, MEDICAID, SELFPAY | PROVIDERS: PCP Family Medicine; Visit Provider Family Medicine | DX: E11.9 Type 2 diabetes mellitus without complications (principal); J18.9 Pneumonia, unspecified organism | CPT/HCPCS: 71046; 83036; 85025 ==

== ENCOUNTER → 2023-01-04 11:00 | Outpatient (BNVA) | payer MEDICARE, MEDICAID, SELFPAY | PROVIDERS: PCP Family Medicine; Visit Provider Nurse Practitioner Family | DX: I48.20 Chronic atrial fibrillation, unspecified (principal); Z79.01 Long term (current) use of anticoagulants; Z79.82 Long term (current) use of aspirin; G47.33 Obstructive sleep apnea (adult) (pediatric); R51.9 Headache, unspecified; R09.02 Hypoxemia; F17.220 Nicotine dependence, chewing tobacco, uncomplicated | CPT/HCPCS: 99214 ==

== ENCOUNTER → 2023-01-23 11:24 | Outpatient (BNVA) | payer MEDICARE, MEDICAID, SELFPAY | PROVIDERS: PCP Family Medicine; Visit Provider Nurse Practitioner Family | DX: J18.9 Pneumonia, unspecified organism (principal) | CPT/HCPCS: 71046 ==

== ENCOUNTER → 2023-02-04 10:38 | Outpatient (BNVA) | payer MEDICARE, MEDICAID, SELFPAY | PROVIDERS: PCP Family Medicine; Visit Provider Podiatrist Foot & Ankle Surgery | DX: E11.628 Type 2 diabetes mellitus with other skin complications (principal); B35.1 Tinea unguium; Z79.4 Long term (current) use of insulin; L84 Corns and callosities; L60.1 Onycholysis | CPT/HCPCS: 11721 ==

== ENCOUNTER → 2023-04-01 08:46 | Outpatient (BNVA) | payer MEDICARE, MEDICAID, SELFPAY | PROVIDERS: PCP Family Medicine; Visit Provider Family Medicine | DX: Z12.5 Encounter for screening for malignant neoplasm of prostate (principal); E11.628 Type 2 diabetes mellitus with other skin complications; Z79.4 Long term (current) use of insulin | CPT/HCPCS: 80053; 80061; 83036; G0103 ==

== ENCOUNTER → 2023-05-20 08:38 | Outpatient (BNVA) | payer MEDICARE, MEDICAID, SELFPAY | PROVIDERS: PCP Family Medicine; Visit Provider Podiatrist Foot & Ankle Surgery | DX: I73.9 Peripheral vascular disease, unspecified (principal); B35.1 Tinea unguium; E11.628 Type 2 diabetes mellitus with other skin complications; Z79.4 Long term (current) use of insulin; L84 Corns and callosities; G62.9 Polyneuropathy, unspecified | CPT/HCPCS: 11721 ==

== ENCOUNTER → 2023-06-07 08:24 | Outpatient (BNVA) | payer MEDICARE, SELFPAY | PROVIDERS: PCP Family Medicine; Visit Provider Nurse Practitioner Family | DX: L91.8 Other hypertrophic disorders of the skin (principal) | CPT/HCPCS: 11200; 17000; 17003; 99214 ==

== ENCOUNTER → 2023-07-01 08:30 | Outpatient (BNVA) | payer MEDICARE, SELFPAY | PROVIDERS: PCP Family Medicine; Visit Provider Family Medicine | DX: E11.628 Type 2 diabetes mellitus with other skin complications (principal); Z79.4 Long term (current) use of insulin | CPT/HCPCS: 80048; 83036 ==

== ENCOUNTER → 2023-07-26 10:37 | Outpatient (BNVA) | payer MEDICARE, SELFPAY | PROVIDERS: PCP Family Medicine; Visit Provider Podiatrist Foot & Ankle Surgery | DX: B35.1 Tinea unguium (principal); E11.628 Type 2 diabetes mellitus with other skin complications; Z79.4 Long term (current) use of insulin; L84 Corns and callosities; G62.9 Polyneuropathy, unspecified; I73.9 Peripheral vascular disease, unspecified; E11.42 Type 2 diabetes mellitus with diabetic polyneuropathy | CPT/HCPCS: 11721 ==

== ENCOUNTER → 2023-09-27 09:06 | Outpatient (BNVA) | payer MEDICARE, SELFPAY | PROVIDERS: PCP Family Medicine; Visit Provider Podiatrist Foot & Ankle Surgery | DX: B35.1 Tinea unguium (principal); E11.628 Type 2 diabetes mellitus with other skin complications; Z79.4 Long term (current) use of insulin; L84 Corns and callosities; G62.9 Polyneuropathy, unspecified; I73.9 Peripheral vascular disease, unspecified; E11.42 Type 2 diabetes mellitus with diabetic polyneuropathy | CPT/HCPCS: 11721 ==

== ENCOUNTER → 2023-10-01 08:46 | Outpatient (BNVA) | payer MEDICARE, SELFPAY | PROVIDERS: PCP Family Medicine; Visit Provider Family Medicine | DX: E11.9 Type 2 diabetes mellitus without complications (principal); I10 Essential (primary) hypertension | CPT/HCPCS: 80048; 83036 ==

== ENCOUNTER → 2023-10-11 08:37 | Outpatient (BNVA) | payer MEDICARE, SELFPAY | PROVIDERS: PCP Family Medicine; Visit Provider Internal Medicine Cardiovascular Disease | DX: R07.9 Chest pain, unspecified (principal); R06.00 Dyspnea, unspecified; I11.0 Hypertensive heart disease with heart failure; I50.31 Acute diastolic (congestive) heart failure; E78.2 Mixed hyperlipidemia; E11.628 Type 2 diabetes mellitus with other skin complications; Z79.4 Long term (current) use of insulin; G47.33 Obstructive sleep apnea (adult) (pediatric); F17.220 Nicotine dependence, chewing tobacco, uncomplicated | CPT/HCPCS: 99214 ==

== ENCOUNTER → 2023-12-16 09:38 | Outpatient (BNVA) | payer MEDICARE, SELFPAY | PROVIDERS: PCP Family Medicine; Visit Provider Podiatrist Foot & Ankle Surgery | DX: I73.9 Peripheral vascular disease, unspecified (principal); B35.1 Tinea unguium; L84 Corns and callosities; E11.628 Type 2 diabetes mellitus with other skin complications; Z79.4 Long term (current) use of insulin; G62.9 Polyneuropathy, unspecified; L03.90 Cellulitis, unspecified | CPT/HCPCS: 11056; 11721; 99213 ==

== ENCOUNTER → 2023-12-21 11:03 | Outpatient (BNVA) | payer MEDICARE, SELFPAY | PROVIDERS: PCP Family Medicine; Visit Provider Emergency Medicine | DX: R68.89 Other general symptoms and signs (principal) | CPT/HCPCS: 87400; 87426 ==

== ENCOUNTER → 2023-12-31 08:36 | Outpatient (BNVA) | payer MEDICARE, SELFPAY | PROVIDERS: PCP Family Medicine; Visit Provider Family Medicine | DX: E11.628 Type 2 diabetes mellitus with other skin complications (principal); Z79.4 Long term (current) use of insulin | CPT/HCPCS: 83036 ==

== ENCOUNTER → 2024-02-06 09:20 | Outpatient (BNVA) | payer MEDICARE, SELFPAY | PROVIDERS: PCP Family Medicine; Visit Provider Nurse Practitioner Family | DX: L66.8 Other cicatricial alopecia (principal); L81.4 Other melanin hyperpigmentation | CPT/HCPCS: 99214 ==

== ENCOUNTER → 2024-02-24 10:16 | Outpatient (BNVA) | payer MEDICARE, SELFPAY | PROVIDERS: PCP Family Medicine; Visit Provider Podiatrist Foot & Ankle Surgery | DX: B35.1 Tinea unguium (principal); E11.628 Type 2 diabetes mellitus with other skin complications; Z79.4 Long term (current) use of insulin; L84 Corns and callosities; G62.9 Polyneuropathy, unspecified; I73.9 Peripheral vascular disease, unspecified | CPT/HCPCS: 11721 ==

== ENCOUNTER → 2024-03-30 09:38 | Outpatient (BNVA) | payer MEDICARE, SELFPAY | PROVIDERS: PCP Family Medicine; Visit Provider Family Medicine | DX: E11.9 Type 2 diabetes mellitus without complications (principal); E11.628 Type 2 diabetes mellitus with other skin complications; Z79.4 Long term (current) use of insulin | CPT/HCPCS: 80053; 80061; 83036; 83721 ==

== ENCOUNTER → 2024-05-04 11:15 | Outpatient (BNVA) | payer MEDICARE, SELFPAY | PROVIDERS: PCP Family Medicine; Visit Provider Podiatrist Foot & Ankle Surgery | DX: B35.1 Tinea unguium (principal); E11.628 Type 2 diabetes mellitus with other skin complications; Z79.4 Long term (current) use of insulin; L84 Corns and callosities; G62.9 Polyneuropathy, unspecified; I73.9 Peripheral vascular disease, unspecified | CPT/HCPCS: 11721 ==

== ENCOUNTER 2024-07-06 11:17 | Outpatient (CLI) | payer MEDICARE, SELFPAY ==
--- NOTE | 2024-07-06 11:27 | XR_ITS ---
WS: [id number] Exam: XR chest 2V* [id number] Date/Time of Exam: 07/06/2024 11:28 AM Reason For Exam: R93.89 - Abnormal findings on diagnostic imaging of other... Lungs are clear and fully inflated. Cardiomediastinal silhouette appears normal. No pleural effusions . Bony structures are intact. XR/XR chest 2V* [id number] IMPRESSION: 1. No acute cardiopulmonary process.
--- NOTE | 2024-07-06 11:27 | XR_ITS ---
WS: [email or web address] Exam: XR ribs RT 2V* [id number] Date/Time of Exam: 07/06/2024 11:28 AM Reason For Exam: R07.81 - Pleurodynia No acute rib fracture noted. The RIGHT lung is fully expanded and clear. No pleural or pulmonary reac tive changes. XR/XR ribs RT 2V* [id number] IMPRESSION: 1. No acute RIGHT rib fracture or pneumothorax.
== END 2024-07-06 11:18 | disposition home or self-care (01) ==
PROVIDERS: PCP Family Medicine; Visit Provider Family Medicine
DX: R93.89 Abnormal findings on diagnostic imaging of other specified body structures (principal); R07.1 Chest pain on breathing; R07.81 Pleurodynia; E11.628 Type 2 diabetes mellitus with other skin complications; Z79.4 Long term (current) use of insulin
CPT/HCPCS: 11055; 11721; 71046; 71100; 80053; 83036

== ENCOUNTER → 2024-08-06 12:45 | Outpatient (BNVA) | payer MEDICARE, SELFPAY | PROVIDERS: PCP Family Medicine; Visit Provider Internal Medicine | DX: R07.9 Chest pain, unspecified (principal); R06.02 Shortness of breath; R06.00 Dyspnea, unspecified; I11.0 Hypertensive heart disease with heart failure; I50.31 Acute diastolic (congestive) heart failure; I10 Essential (primary) hypertension; E78.2 Mixed hyperlipidemia; E11.628 Type 2 diabetes mellitus with other skin complications; Z79.4 Long term (current) use of insulin; G47.33 Obstructive sleep apnea (adult) (pediatric) | CPT/HCPCS: 99214 ==

== ENCOUNTER 2024-09-03 07:19 | Outpatient (CLI) | payer MEDICARE, SELFPAY ==
--- NOTE | 2024-09-03 | ECG_ITS ---
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 The perfusion scan will be documented separately. DATA: Baseline heart rate was 100 beats per minute. Baseline blood pressure was 116/88 millimeters of mercury. Target heart rate was 132. Maximum heart rate achieved was 132 which was 79% of the predicted target heart rate. Maximum blood pressure was 125/88 millimeters of mercury. The reason for ending the test was completion of the protocol. The patient did not experience any symptoms. ELECTROCARDIOGRAM: BASELINE: Atrial fibrillation. Normal axis. Otherwise, no ST-T changes suggestive of ischemia noted. No arrhythmia noted. EXERCISE: After Lexiscan injection, no ST-T changes suggestive of ischemic noted. No arrhythmia noted. CONCLUSION: Please note due to baseline abnormality of the EKG specificity and sensitivity of the EKG portion of LexiScan MIBI stress test will be low 1. EKG not suggestive of ischemia 2. Lexiscan injection unremarkable. 3. Perfusion scan will be documented separately. Electronically Signed On 09-06-2024 14:53:40 CDT by CAMMIE SINGLETARY [email or web address]
[2024-09-03 07:39] VITALS: BMI 41.5
--- NOTE | 2024-09-03 07:43 | NMCV_ITS ---
NM paul perf SPECT r/s* [id number] Allen Prince Age: 53 Gender: M : 1970 Exam Date: 09/03/2024 08:33 Ordering Phys: Carlos A Alexander M.D ([email or web address]) Technologist: JULIANA Pascual Exam Location: [facility] Indications: cp STRESS TEST Please see separate stress test report in [facility] for full findings IMAGE PROTOCOL Rest/Stress 1 Lexiscan Day Radiopharmaceutical Dose (mCi) Administration Site Administered by Rest: Tc-99m 9.1 IV JULIANA Grey Sestamibi Stress:Tc-99m 32.2 IV JULIANA Grey Sestamibi Rest: 03-Sep-2024 60 Discovery 630 Stress: 03-Sep-2024 30 Discovery 630 0.4mg Lexiscan. Supine position only as patient was unable to lay prone. SPECT RESULTS Technical Quality: Good Raw Data Analysis: Normal Image Corrections: No attenuation or motion correction applied Summed Stress Score: 0 Summed Rest Score: 0 Summed Difference Score: 0 PERFUSION FINDINGS Small area of fixed perfusion defect noted in the distal segment of anterior wall suggestive of old myocardial infarction versus artifact FUNCTIONAL RESULTS (calculated via Gated SPECT) Stress Image LV EF (%): 53 Stress EDV (mL):105 TID: 0.86 Stress ESV (mL):49 FUNCTIONAL FINDINGS: There is normal left ventricular systolic function. IMPRESSIONS Small area of fixed perfusion defect suggestive of old myocardial infarction versus artifact noted in distal anterior LAD segment without ischemia. This study is negative for ischemia. EKG segment will be documented separately Maricruz Rubin MD (Electronically Signed) Final Date: 03 September 2024 19:28 S
[2024-09-03] MEDS: regadenoson 0.4 Mg/5 ml Syringe IVP (09:14)
[2024-09-03 10:12] VITALS: BP 112/66; PULSE 108
== END 2024-09-03 07:20 | disposition home or self-care (01) ==
LOC: CDL 07:20
PROVIDERS: PCP Family Medicine; Visit Provider Internal Medicine
DX: R06.02 Shortness of breath (principal)
CPT/HCPCS: 36415; 78452; 93017; 96374; A9500; J2785

== ENCOUNTER → 2024-09-07 11:07 | Outpatient (BNVA) | payer MEDICARE, SELFPAY | PROVIDERS: PCP Family Medicine; Visit Provider Podiatrist Foot & Ankle Surgery | DX: B35.1 Tinea unguium (principal); E11.628 Type 2 diabetes mellitus with other skin complications; Z79.4 Long term (current) use of insulin; L84 Corns and callosities; G62.9 Polyneuropathy, unspecified; I73.9 Peripheral vascular disease, unspecified; E11.42 Type 2 diabetes mellitus with diabetic polyneuropathy; Z79.84 Long term (current) use of oral hypoglycemic drugs | CPT/HCPCS: 11055; 11721 ==

== ENCOUNTER → 2024-09-29 09:16 | Outpatient (BNVA) | payer MEDICARE, SELFPAY | PROVIDERS: PCP Family Medicine; Visit Provider Family Medicine | DX: E11.628 Type 2 diabetes mellitus with other skin complications (principal); Z79.4 Long term (current) use of insulin | CPT/HCPCS: 80048; 83036 ==

== ENCOUNTER → 2024-11-17 11:13 | Outpatient (BNVA) | payer MEDICARE, SELFPAY | PROVIDERS: PCP Family Medicine; Visit Provider Podiatrist Foot & Ankle Surgery | DX: R23.4 Changes in skin texture (principal); B35.1 Tinea unguium; E11.628 Type 2 diabetes mellitus with other skin complications; Z79.4 Long term (current) use of insulin; L84 Corns and callosities; G62.9 Polyneuropathy, unspecified; I73.9 Peripheral vascular disease, unspecified; Z79.84 Long term (current) use of oral hypoglycemic drugs | CPT/HCPCS: 11056; 11721; 99213 ==

== ENCOUNTER → 2025-01-19 10:45 | Outpatient (BNVA) | payer MEDICARE, SELFPAY | PROVIDERS: PCP Family Medicine; Visit Provider Podiatrist Foot & Ankle Surgery | DX: E11.628 Type 2 diabetes mellitus with other skin complications (principal); B35.1 Tinea unguium; R23.4 Changes in skin texture; Z79.4 Long term (current) use of insulin; L84 Corns and callosities; G62.9 Polyneuropathy, unspecified; I73.9 Peripheral vascular disease, unspecified; Z79.84 Long term (current) use of oral hypoglycemic drugs | CPT/HCPCS: 11056; 11721; 99213 ==

== ENCOUNTER → 2025-02-04 11:19 | Outpatient (BNVA) | payer MEDICARE, SELFPAY | PROVIDERS: PCP Family Medicine; Visit Provider Nurse Practitioner Family | DX: I48.20 Chronic atrial fibrillation, unspecified (principal); R94.31 Abnormal electrocardiogram [ECG] [EKG] | CPT/HCPCS: 93005; 99214 ==

== ENCOUNTER → 2025-02-05 09:30 | Outpatient (BNVA) | payer MEDICARE, SELFPAY | PROVIDERS: PCP Family Medicine; Visit Provider Nurse Practitioner Family | DX: L66.8 Other cicatricial alopecia (principal); L81.4 Other melanin hyperpigmentation; D22.5 Melanocytic nevi of trunk; L85.3 Xerosis cutis; L57.8 Other skin changes due to chronic exposure to nonionizing radiation; L21.8 Other seborrheic dermatitis | CPT/HCPCS: 93798; 99214 ==

== ENCOUNTER 2025-02-08 09:28 | Outpatient (CLI) | payer MEDICARE, SELFPAY ==
[2025-02-08 10:49] LABS: Digoxin 0.5 ng/mL (0.6-1.2)
== END 2025-02-08 09:29 | disposition home or self-care (01) ==
LOC: LAB 09:30
PROVIDERS: PCP Family Medicine; Visit Provider Nurse Practitioner Family
DX: I50.31 Acute diastolic (congestive) heart failure (principal)
CPT/HCPCS: 36415; 80162

== ENCOUNTER → 2025-02-11 14:12 | Outpatient (BNVA) | payer MEDICARE, SELFPAY | PROVIDERS: PCP Family Medicine; Visit Provider Internal Medicine | DX: I11.0 Hypertensive heart disease with heart failure (principal); I50.31 Acute diastolic (congestive) heart failure; Z79.01 Long term (current) use of anticoagulants; Z79.82 Long term (current) use of aspirin; R07.89 Other chest pain; R06.00 Dyspnea, unspecified; E78.5 Hyperlipidemia, unspecified; E11.628 Type 2 diabetes mellitus with other skin complications; Z79.4 Long term (current) use of insulin; F17.210 Nicotine dependence, cigarettes, uncomplicated; I48.20 Chronic atrial fibrillation, unspecified | CPT/HCPCS: 99214 ==

== ENCOUNTER → 2025-02-25 12:17 | Outpatient (BNVA) | payer MEDICARE, SELFPAY | PROVIDERS: PCP Family Medicine; Visit Provider Internal Medicine | DX: E11.628 Type 2 diabetes mellitus with other skin complications (principal); Z79.4 Long term (current) use of insulin | CPT/HCPCS: 36415; 80053; 80061; 82044; 83036 ==

== ENCOUNTER → 2025-03-23 11:19 | Outpatient (BNVA) | payer MEDICARE, SELFPAY | PROVIDERS: PCP Family Medicine; Visit Provider Podiatrist Foot & Ankle Surgery | DX: E11.42 Type 2 diabetes mellitus with diabetic polyneuropathy (principal); B35.1 Tinea unguium; L84 Corns and callosities; S90.852A Superficial foreign body, left foot, initial encounter; R23.4 Changes in skin texture; E11.628 Type 2 diabetes mellitus with other skin complications; Z79.4 Long term (current) use of insulin; G62.9 Polyneuropathy, unspecified; I73.9 Peripheral vascular disease, unspecified; L02.612 Cutaneous abscess of left foot; X58.XXXA Exposure to other specified factors, initial encounter; Z79.84 Long term (current) use of oral hypoglycemic drugs | CPT/HCPCS: 10120; 11056; 11721; 99214 ==

== ENCOUNTER → 2025-03-30 08:36 | Outpatient (BNVA) | payer MEDICARE, SELFPAY | PROVIDERS: PCP Family Medicine; Visit Provider Family Medicine | DX: I48.20 Chronic atrial fibrillation, unspecified (principal); Z51.81 Encounter for therapeutic drug level monitoring; I50.31 Acute diastolic (congestive) heart failure | CPT/HCPCS: 80162; 85025 ==

== ENCOUNTER → 2025-03-31 15:28 | Outpatient (BNVA) | payer MEDICARE, SELFPAY | PROVIDERS: PCP Family Medicine; Visit Provider Podiatrist Foot & Ankle Surgery | DX: B35.1 Tinea unguium (principal); R23.4 Changes in skin texture; E11.628 Type 2 diabetes mellitus with other skin complications; Z79.4 Long term (current) use of insulin; L84 Corns and callosities; G62.9 Polyneuropathy, unspecified; I73.9 Peripheral vascular disease, unspecified; S90.852A Superficial foreign body, left foot, initial encounter; L02.612 Cutaneous abscess of left foot; Z79.84 Long term (current) use of oral hypoglycemic drugs; X58.XXXA Exposure to other specified factors, initial encounter | CPT/HCPCS: 99213 ==

== ENCOUNTER → 2025-05-27 11:03 | Outpatient (BNVA) | payer MEDICARE, SELFPAY | PROVIDERS: PCP Family Medicine; Visit Provider Internal Medicine | DX: E11.628 Type 2 diabetes mellitus with other skin complications (principal); Z79.4 Long term (current) use of insulin; E78.2 Mixed hyperlipidemia | CPT/HCPCS: 99214 ==

== ENCOUNTER → 2025-06-01 11:25 | Outpatient (BNVA) | payer MEDICARE, SELFPAY | PROVIDERS: PCP Family Medicine; Visit Provider Podiatrist Foot & Ankle Surgery | DX: E11.42 Type 2 diabetes mellitus with diabetic polyneuropathy (principal); B35.1 Tinea unguium; L84 Corns and callosities; R23.4 Changes in skin texture; E11.628 Type 2 diabetes mellitus with other skin complications; Z79.4 Long term (current) use of insulin; G62.9 Polyneuropathy, unspecified; I73.9 Peripheral vascular disease, unspecified; Z79.84 Long term (current) use of oral hypoglycemic drugs | CPT/HCPCS: 11056; 11721 ==

== ENCOUNTER → 2025-08-03 07:05 | Outpatient (BNVA) | payer MEDICARE, SELFPAY | PROVIDERS: PCP Family Medicine; Visit Provider Podiatrist Foot & Ankle Surgery | DX: E11.628 Type 2 diabetes mellitus with other skin complications (principal); Z79.4 Long term (current) use of insulin; G62.9 Polyneuropathy, unspecified; L03.031 Cellulitis of right toe; S90.811A Abrasion, right foot, initial encounter; Z79.84 Long term (current) use of oral hypoglycemic drugs; W22.8XXA Striking against or struck by other objects, initial encounter | CPT/HCPCS: 99214 ==

== ENCOUNTER → 2025-08-12 14:12 | Outpatient (BNVA) | payer MEDICARE, SELFPAY | PROVIDERS: PCP Family Medicine; Visit Provider Internal Medicine | DX: I48.91 Unspecified atrial fibrillation (principal); I11.0 Hypertensive heart disease with heart failure; I50.31 Acute diastolic (congestive) heart failure | CPT/HCPCS: 99214 ==

== ENCOUNTER → 2025-08-18 11:03 | Outpatient (BNVA) | payer OTHER, SELFPAY | PROVIDERS: PCP Family Medicine; Visit Provider Podiatrist Foot & Ankle Surgery | DX: E11.42 Type 2 diabetes mellitus with diabetic polyneuropathy (principal); B35.1 Tinea unguium; L84 Corns and callosities; E11.628 Type 2 diabetes mellitus with other skin complications; Z79.4 Long term (current) use of insulin; G62.9 Polyneuropathy, unspecified; Z79.84 Long term (current) use of oral hypoglycemic drugs | CPT/HCPCS: 11056; 11721 ==

== ENCOUNTER → 2025-09-28 08:55 | Outpatient (BNVA) | payer MEDICARE, SELFPAY | PROVIDERS: PCP Family Medicine; Visit Provider Family Medicine | DX: Z12.5 Encounter for screening for malignant neoplasm of prostate (principal); E11.628 Type 2 diabetes mellitus with other skin complications; Z79.4 Long term (current) use of insulin; E11.9 Type 2 diabetes mellitus without complications | CPT/HCPCS: 80048; 83036; G0103 ==

== ENCOUNTER 2025-11-09 10:48 | Outpatient (CLI) | payer SELFPAY ==
[2025-11-09 11:27] LABS: Estmated Average Glucose 154; Hemoglobin A1C 7.0 % (4.0-6.0)
[2025-11-09 11:41] LABS: Creatinine Urine, Random 191 mg/dL (39-259); Microalbum Creatinine Ratio Ur 10 mg/dL (0-20)
[2025-11-09 11:44] LABS: Alanine Aminotransferase 14 U/L (0-41); Albumin Level 4.1 g/dL (3.5-5.2); Alkaline Phosphatase 119 U/L (40-130); Anion Gap 12.9 (5-19); Aspartate Amino Transferase 17 U/L (0-40); Blood Urea Nitrogen 8 mg/dL (6-20); Calcium 9.1 mg/dL (8.5-10.5); Carbon Dioxide 33 mmol/L (22-29); Chloride 100 mmol/L (98-107); Cholesterol 166 mg/dL (0-200); Globulin 3.5 g/dL (1.3-4.6); Glucose 72 mg/dL (65-115); HDL Cholesterol 32 mg/dL (60-100); Osmolality Calculated 291 mOsm/kg (285-295); Potassium 3.9 mmol/L (3.5-5.1); Sodium 142 mmol/L (136-145); Total Protein 7.6 g/dL (6.6-8.7); Triglycerides 201 mg/dL (0-150)
== END 2025-11-09 10:49 | disposition home or self-care (01) ==
PROVIDERS: PCP Family Medicine; Visit Provider Internal Medicine
DX: E11.628 Type 2 diabetes mellitus with other skin complications (principal); Z79.4 Long term (current) use of insulin
CPT/HCPCS: 80053; 80061; 82044; 83036